=== PATIENT | male | born 1960 | race Caucasian/White ===

== ENCOUNTER 2022-01-06 10:27 | Outpatient (REF) | payer MEDICAID, SELFPAY ==
--- NOTE | ~2022-01-06 | XR_ITS ---
EXAMINATION: XR ELBOW, LEFT CLINICAL INFORMATION: Pain. COMPARISON: None TECHNIQUE: AP, lateral, and oblique views of the left elbow. FINDINGS: There is a large olecranon osteophyte. Also visualized is a small medial epicondyle osteophyte. No acute fracture, dislocation or subluxation seen. No joint effusion. No soft tissue calcification. XR/XR elbow LT min 3V IMPRESSION: Large olecranon and a small medial epicondyle osteophyte. No fracture acute fracture or joint effusion seen.
== END 2022-01-06 10:28 | disposition home or self-care (01) ==
LOC: HO.HOSX 10:27
PROVIDERS: Visit Provider Physician Assistant
DX: M25.722 Osteophyte, left elbow (principal)
CPT/HCPCS: 73080; 99202

== ENCOUNTER 2023-04-27 08:32 | Outpatient (REF) | payer MEDICAID, SELFPAY ==
[2023-04-27 10:55] LABS: Alanine Aminotransferase 45 U/L (0-40); Albumin Level 4.3 g/dL (3.5-5.0); Alkaline Phosphatase 69 U/L (39-117); Anion Gap 13 (12-20); Aspartate Amino Transferase 22 U/L (5-37); Bilirubin Total 0.3 mg/dL (0.0-1.0); Blood Urea Nitrogen 13 mg/dL (9-16); Calcium 10.1 mg/dL (8.4-10.2); Carbon Dioxide 28 mmol/L (22-29); Chloride 98 mmol/L (96-108); Cholesterol 183 mg/dL (<200); Estimated Glomerular Filt Rate > 60; Glucose Random 125 mg/dL (60-115); HDL Cholesterol 39 mg/dL (>40); LDL Cholesterol Calculated 69 mg/dL (<100); Potassium 3.5 mmol/L (3.3-5.1); Sodium 135 mmol/L (135-145); Total Protein 8.3 g/dL (6.5-8.0); Triglycerides 376 mg/dL (<150)
[2023-04-27 11:07] LABS: Prostate Specific Antigen 7.09 ng/mL (<0.05-4.0)
[2023-04-27 12:03] LABS: Estimated Average Glucose 117 mg/dL; Hemoglobin A1c % 5.7 % (<6.0)
[2023-04-27 12:17] LABS: Reflex LDLD? No
== END 2023-04-27 08:33 | disposition home or self-care (01) ==
LOC: HO.LAB 08:32
PROVIDERS: PCP Family Medicine; Visit Provider Family Medicine
DX: I10 Essential (primary) hypertension (principal); E78.5 Hyperlipidemia, unspecified; N40.0 Benign prostatic hyperplasia without lower urinary tract symptoms
CPT/HCPCS: 36415; 80053; 80061; 83036; 84153

== ENCOUNTER 2023-09-13 07:36 | Outpatient (REF) | payer MEDICAID, SELFPAY ==
--- NOTE | ~2023-09-13 | US_ITS ---
EXAMINATION: US COMPLETE ABDOMEN WITH LIVER ELASTOGRAPHY CLINICAL INFORMATION: Hepatic fibrosis. COMPARISON: CT abdomen and pelvis dated 05/12/2018; abdominal ultrasound dated 06/22/2010. TECHNIQUE: Real-time imaging of the abdominal viscera. Noninvasive ultrasound liver fibrosis assessment is performed using Wallace ElastPQ point quantification shear wave elastography (2D-SWE) with a C5-2 MHz transducer. Multiple elastography samples are obtained. FINDINGS: PANCREAS: Largely obscured by overlapping bowel gas. ABDOMINAL AORTA: The proximal and mid segments are obscured by overlapping bowel gas. The distal segment is normal in caliber. INFERIOR VENA CAVA: Visualized portions are normal. LIVER: The liver demonstrates normal size, contour and increased echogenicity. No focal lesion or intrahepatic biliary duct dilatation. The right lobe measures 16.3 cm in length. The left lobe measures 11.8 cm in length. Portal flow is towards the liver (hepatopetal). Shear wave liver elastography median stiffness is 1.97 m/s (reference: normal median stiffness is 1.3 m/s or less). IQR/median stiffness to assess sampling precision is 0.15 (reference: good quality data set is IQR/median stiffness of 0.15 or less). GALLBLADDER: There are small foci of ringdown artifact, consistent with adenomyomatosis. The gallbladder is physiologically distended without evidence of stones, sludge, polyps, wall thickening or pericholecystic fluid. COMMON BILE DUCT: Normal in caliber measuring 0.4 cm in diameter. RIGHT KIDNEY: Normal. No hydronephrosis. No renal calculi or focal parenchymal lesions. The kidney measures 11.5 cm in maximum dimension. LEFT KIDNEY: Normal. No hydronephrosis. No renal calculi or focal parenchymal lesions. The kidney measures 11.6 cm in maximum dimension. SPLEEN: Normal. The spleen measures 9.8 cm in maximum dimension. FREE FLUID: None. US/US abdomen comp w elastography IMPRESSION: 1. There is generalized increase in hepatic echotexture, consistent with fatty infiltration or hepatocellular disease. Please correlate clinically. No focal hepatic mass or intrahepatic biliary dilatation is seen. 2. Liver elastography: Measurements are suggestive of compensated advanced chronic liver disease but need further test for confirmation. 3. There is mild adenomyomatosis. 4. Technically limited ultrasound examination of the pancreas and abdominal great vessels. REFERENCE: Society of Radiologists in Ultrasound Liver Stiffness Thresholds (2020): LIVER STIFFNESS THRESHOLDS: *Liver Stiffness equal or less than 1.3 m/s: High probability of being normal. *Liver Stiffness less than 1.7 m/s: In the absence of other known clinical signs, rules out compensated advanced chronic liver disease. *Liver Stiffness 1.7-2.1 m/s: Suggestive of compensated advanced chronic liver disease but need further test for confirmation. *Liver Stiffness over 2.1 m/s: Rules in compensated advanced chronic liver disease. *Liver Stiffness over 2.4 m/s: Suggestive of clinically significant portal hypertension. QUALITY OF DATA SET: *IQR/Median value equal or less than 0.15 implies a quality data set. *IQR/Median value over 0.15 implies a poor quality data set. SIGNIFICANT CHANGE FROM PRIOR EXAM: Significant change if liver stiffness measurement is 10% or greater from prior exam. OTHER CONSIDERATIONS: The stage of liver fibrosis may be overestimated in the setting of acute hepatitis, liver inflammation, elevated liver function tests, hepatic vascular congestion, obstructive cholestasis, non-fasting state, and infiltrative diseases such as amyloidosis and lymphoma. In some patients with NAFLD, the liver stiffness thresholds for compensated advanced chronic liver disease may be lower. In causes other than viral hepatitis and NAFLD, liver stiffness thresholds are not well established.
[2023-09-13 08:38] LABS: MANUAL DIFF FLAG NO
[2023-09-13 09:13] LABS: Basophils Absolute Auto 0.1 X10*3/uL (0.0-0.2); Basophils Percent Auto 0.8 % (0-2); Eosinophils Absolute Auto 0.2 X10*3/uL (0.0-0.4); Eosinophils Percent Auto 2.6 % (0-4); Hemoglobin 16.4 g/dl (14.0-18.0); Imm Gran Abs Auto 0.02 X10*3/uL (0.00-0.03); Imm Gran Pct Auto 0.3 % (0.0-0.4); Lymphocytes Absolute Auto 2.6 X10*3/uL (1.2-4.9); Lymphocytes Percent Auto 35.3 % (20-40); Mean Corpuscular HGB Conc 33.5 g/dl (31.0-36.0); Mean Corpuscular Hemoglobin 27.4 pg (27.0-33.0); Mean Corpuscular Volume 81.8 fL (80.0-98.0); Mean Platelet Volume 9.6 fL (9.4-12.4); Monocytes Absolute Auto 0.7 X10*3/uL (0.1-1.2); Neutrophils Absolute Auto 3.9 x10*3/uL (2.0-8.3); Platelet Count 256 X10*3/uL (160-400); Red Blood Count 5.99 X10*6/uL (4.60-5.80); Red Cell Distribution Width 13.2 % (11.0-16.0); White Blood Count 7.4 X10*3/uL (4.8-10.8)
[2023-09-13 09:21] LABS: Prothrombin Time 12.5 SEC (11.1-13.3)
[2023-09-13 10:35] LABS: Alanine Aminotransferase 33 U/L (0-40); Albumin Level 4.3 g/dL (3.5-5.0); Alkaline Phosphatase 68 U/L (39-117); Aspartate Amino Transferase 19 U/L (5-37); Bilirubin Direct 0.2 mg/dL (0.0-0.5); Bilirubin Total 0.6 mg/dL (0.0-1.0); Total Protein 8.1 g/dL (6.5-8.0)
[2023-09-14 13:38] LABS: Alpha Fetoprotein 2.1 ng/mL (<6.1)
[2023-09-15 08:33] LABS: HCV Log PCR <1.18 NOT DETECTED Log IU/mL (NOT DETECTED); HepC Viral Load <15 NOT DETECTED IU/mL (NOT DETECTED)
[2023-09-30 08:12] LABS: Liver Fibrosis Score 0.29; Liver Fibrosis Stage F1
[2023-09-30 08:13] LABS: Nec Inflam Act Grade A0; Nec Inflam Act Score 0.13
[2023-09-30 08:14] LABS: FIB-Alpha-2-Macroglobulin 226; FIB-Haptoglobin 212
[2023-09-30 08:15] LABS: FIB-Apolipoprotein A1 135; FIB-GGT 27; FIB-Total Bilirubin 0.5
[2023-09-30 08:16] LABS: FIB-ALT 28
== END 2023-09-13 07:37 | disposition home or self-care (01) ==
LOC: HO.US 07:36
PROVIDERS: PCP Family Medicine; Visit Provider Internal Medicine
DX: Z86.19 Personal history of other infectious and parasitic diseases (principal); K74.00 Hepatic fibrosis, unspecified
CPT/HCPCS: 36415; 76700; 76981; 80076; 81596; 82105; 85025; 85610; 87522

== ENCOUNTER 2023-10-06 10:27 | Outpatient (REF) | payer MEDICAID, SELFPAY ==
--- NOTE | ~2023-10-06 | XR_ITS ---
EXAMINATION: XR ANKLE, LEFT CLINICAL INFORMATION: Left ankle pain. Evaluate for gout. COMPARISON: None available. TECHNIQUE: AP, lateral, and mortise views of the left ankle. FINDINGS: No acute fracture or dislocation. Minimal tibiotalar joint space narrowing with tiny marginal osteophytes. No talar osteochondral lesion. No periarticular erosion. Along the anterior aspect of the tibial plafond there is faint soft tissue calcification measuring up to 0.9 cm. Minimal circumferential subcutaneous edema. XR/XR ankle LT min 3V IMPRESSION: 1. Minimal tibiotalar osteoarthritis. 2. Faint soft tissue calcification along the anterior aspect of the tibial plafond measuring up to 0.9 cm. No periarticular erosion. Very early gout arthropathy cannot be excluded. 3. Minimal circumferential subcutaneous edema.
[2023-10-06 10:40] LABS: MANUAL DIFF FLAG NO
[2023-10-06 10:57] LABS: Basophils Absolute Auto 0.1 X10*3/uL (0.0-0.2); Basophils Percent Auto 0.4 % (0-2); Hematocrit 45.5 % (42.0-52.0); Hemoglobin 15.6 g/dl (14.0-18.0); Imm Gran Abs Auto 0.08 X10*3/uL (0.00-0.03); Imm Gran Pct Auto 0.6 % (0.0-0.4); Lymphocytes Absolute Auto 3.5 X10*3/uL (1.2-4.9); Mean Corpuscular HGB Conc 34.3 g/dl (31.0-36.0); Mean Corpuscular Hemoglobin 27.4 pg (27.0-33.0); Mean Corpuscular Volume 79.8 fL (80.0-98.0); Mean Platelet Volume 9.3 fL (9.4-12.4); Monocytes Absolute Auto 1.3 X10*3/uL (0.1-1.2); Monocytes Percent Auto 9.3 % (2-11); Neutrophils Percent Auto 64.7 % (45-73); Platelet Count 307 X10*3/uL (160-400); Red Cell Distribution Width 13.3 % (11.0-16.0); White Blood Count 13.9 X10*3/uL (4.8-10.8)
[2023-10-06 11:32] LABS: Anion Gap 15 (12-20); Blood Urea Nitrogen 24 mg/dL (9-16); C Reactive Protein 0.14 mg/dL (< or = 0.50); Calcium 10.4 mg/dL (8.4-10.2); Carbon Dioxide 28 mmol/L (22-29); Chloride 99 mmol/L (96-108); Estimated Glomerular Filt Rate 56; Glucose Random 76 mg/dL (60-115); Potassium 3.5 mmol/L (3.3-5.1); Sodium 138 mmol/L (135-145); Uric Acid 8.2 mg/dL (3.4-7.0)
[2023-10-06 11:39] LABS: Erythrocyte Sedimentation Rate 7 MM/HR (0-15)
== END 2023-10-06 10:28 | disposition home or self-care (01) ==
LOC: HO.XRAY 10:27
PROVIDERS: PCP Family Medicine; Visit Provider Family Medicine
DX: M25.572 Pain in left ankle and joints of left foot (principal); I10 Essential (primary) hypertension
CPT/HCPCS: 36415; 73610; 80048; 84550; 85025; 85652; 86140

== ENCOUNTER 2023-10-26 07:58 | Outpatient (REF) | payer MEDICAID, SELFPAY ==
--- NOTE | ~2023-10-26 | US_ITS ---
EXAMINATION: NONINVASIVE ASSESSMENT OF THE ARTERIES OF BOTH LOWER EXTREMITIES INCLUDING PVR EXAM AND BILATERAL LOWER EXTREMITY DUPLEX CLINICAL INFORMATION: Claudication COMPARISON: None TECHNIQUE: Ankle pulse volume recordings, ankle pressure measurements and ankle brachial indices were obtained of the lower extremity arterial system bilaterally in addition to duplex Doppler techniques with wave form analysis and measurement of velocities in the common femoral, profunda femoral, superficial femoral, popliteal, tibial and peroneal arteries. The study was performed only at rest. FINDINGS: RIGHT LEG 1. Right Ankle-Brachial Index: 1.15 (higher of the DP/PT) >0.97-1.25 = normal - no significant arterial disease 0.75-0.96 = mild peripheral arterial disease 0.5-0.74 = moderate peripheral arterial disease <0.50 = severe peripheral arterial disease <0.30 = critical arterial disease 2. Segmental Pressures (mmHg): Brachial: 125 Ankle: PT 149, DP 153 3. PVR Waveforms: Ankle: Normal 4. Direct Duplex: Common femoral artery: 45.7 cm/s, Multiphasic Profunda femoris artery: 85.1 cm/s, Multiphasic Superficial femoral artery (proximal): 102.1 cm/s, Multiphasic Superficial femoral artery (mid): 109.1 cm/s, Multiphasic Superficial femoral artery (distal): 74.4 cm/s, Multiphasic Proximal Popliteal artery: 67.1 cm/s, Multiphasic Distal popliteal artery: 57.1 cm/s, Multiphasic Mid posterior tibial artery: 64.3 cm/s, Multiphasic Peroneal artery: 67.8 cm/s, Multiphasic Anterior tibial artery: 60 cm/s, multiphasic LEFT LE. Left Ankle-Brachial Index: 1.08 (higher of the DP/PT) >0.97-1.25 = normal - no significant arterial disease 0.75-0.96 = mild peripheral arterial disease 0.5-0.74 = moderate peripheral arterial disease <0.50 = severe peripheral arterial disease <0.30 = critical arterial disease 2. Segmental Pressures: Brachial: 133 Ankle: PT 144, DP 140 3. PVR Waveforms: Ankle: Normal 4. Direct Duplex: Common femoral artery: 107.7 cm/s, Multiphasic Profunda femoris artery: 92.2 cm/s, Multiphasic Superficial femoral artery (proximal): 103.6 cm/s, Multiphasic Superficial femoral artery (mid): 99.6 cm/s, Multiphasic Superficial femoral artery (distal): 79.2 cm/s, Multiphasic Proximal Popliteal artery: 63.5 cm/s, Multiphasic Distal popliteal artery: 58.2 cm/s, Multiphasic Mid posterior tibial artery: 53.9 cm/s, Multiphasic Peroneal artery: 78.8 cm/s, Multiphasic Anterior tibial artery: 70.9 cm/s, multiphasic US/US arterial duplex BI w/ LIUS F IMPRESSION: LUIS F on the right is 1.15 and LUIS F on the left is 1.08. PVR waveforms are unremarkable bilaterally. There is no sonographic evidence of hemodynamically significant arterial disease.
== END 2023-10-26 07:59 | disposition home or self-care (01) ==
LOC: HO.US 07:58
PROVIDERS: PCP Family Medicine; Visit Provider Family Medicine
DX: I73.9 Peripheral vascular disease, unspecified (principal)
CPT/HCPCS: 93922; 93925

== ENCOUNTER 2023-11-04 11:14 | Outpatient (REF) | payer MEDICAID, SELFPAY ==
[2023-11-04 13:24] LABS: Anion Gap 11 (12-20); Blood Urea Nitrogen 13 mg/dL (9-16); Carbon Dioxide 27 mmol/L (22-29); Chloride 103 mmol/L (96-108); Estimated Glomerular Filt Rate > 60; Glucose Random 90 mg/dL (60-115); Potassium 4.2 mmol/L (3.3-5.1); Sodium 137 mmol/L (135-145)
== END 2023-11-04 11:15 | disposition home or self-care (01) ==
LOC: HO.HHCL 11:14
PROVIDERS: Visit Provider Internal Medicine
DX: E87.1 Hypo-osmolality and hyponatremia (principal)
CPT/HCPCS: 36415; 80048

== ENCOUNTER 2024-01-20 10:38 | Outpatient (REF) | payer MEDICAID, SELFPAY ==
[2024-01-20 11:22] LABS: MANUAL DIFF FLAG NO
[2024-01-20 11:26] LABS: Basophils Absolute Auto 0.1 X10*3/uL (0.0-0.2); Basophils Percent Auto 1.1 % (0-2); Eosinophils Absolute Auto 0.3 X10*3/uL (0.0-0.4); Eosinophils Percent Auto 4.2 % (0-4); Hematocrit 48.7 % (42.0-52.0); Hemoglobin 16.2 g/dl (14.0-18.0); Imm Gran Abs Auto 0.02 X10*3/uL (0.00-0.03); Imm Gran Pct Auto 0.3 % (0.0-0.4); Lymphocytes Absolute Auto 2.6 X10*3/uL (1.2-4.9); Lymphocytes Percent Auto 36.8 % (20-40); Mean Corpuscular HGB Conc 33.3 g/dl (31.0-36.0); Mean Corpuscular Hemoglobin 27.4 pg (27.0-33.0); Mean Corpuscular Volume 82.4 fL (80.0-98.0); Mean Platelet Volume 9.6 fL (9.4-12.4); Monocytes Absolute Auto 0.9 X10*3/uL (0.1-1.2); Monocytes Percent Auto 12.3 % (2-11); Neutrophils Absolute Auto 3.3 x10*3/uL (2.0-8.3); Neutrophils Percent Auto 45.3 % (45-73); Platelet Count 262 X10*3/uL (160-400); Red Blood Count 5.91 X10*6/uL (4.60-5.80); Red Cell Distribution Width 13.1 % (11.0-16.0); White Blood Count 7.2 X10*3/uL (4.8-10.8)
[2024-01-20 12:02] LABS: Alanine Aminotransferase 35 U/L (0-40); Albumin Level 4.3 g/dL (3.5-5.0); Alkaline Phosphatase 86 U/L (39-117); Anion Gap 9 (12-20); Aspartate Amino Transferase 22 U/L (5-37); Bilirubin Total 0.3 mg/dL (0.0-1.0); Blood Urea Nitrogen 10 mg/dL (9-16); Calcium 9.8 mg/dL (8.4-10.2); Carbon Dioxide 27 mmol/L (22-29); Chloride 104 mmol/L (96-108); Cholesterol 166 mg/dL (<200); Estimated Glomerular Filt Rate > 60; Glucose Random 127 mg/dL (60-115); HDL Cholesterol 37 mg/dL (>40); LDL Cholesterol Calculated 66 mg/dL (<100); Potassium 3.6 mmol/L (3.3-5.1); Sodium 136 mmol/L (135-145); Total Protein 7.6 g/dL (6.5-8.0); Triglycerides 316 mg/dL (<150); Uric Acid 4.5 mg/dL (3.4-7.0)
[2024-01-20 12:08] LABS: Reflex LDLD? No
[2024-01-20 12:17] LABS: TSH reflex Free T4 1.04 uIU/mL (0.32-4.0)
[2024-01-20 12:35] LABS: Creatinine Urine 81.56 mg/dL; Microalbum/Creatinine Ratio Ur 12.2 ug/mg cr (<30)
== END 2024-01-20 10:39 | disposition home or self-care (01) ==
LOC: HO.HHCL 10:38
PROVIDERS: Visit Provider Family Medicine
DX: R42 Dizziness and giddiness (principal); E87.1 Hypo-osmolality and hyponatremia; M10.9 Gout, unspecified; E78.5 Hyperlipidemia, unspecified; I10 Essential (primary) hypertension
CPT/HCPCS: 36415; 80053; 80061; 82043; 82570; 84443; 84550; 85025

== ENCOUNTER 2024-03-20 08:15 | Day surgery (SDC) | payer MEDICAID, SELFPAY ==
[2023-12-03 14:19] VITALS: BMI 29.4
--- NOTE | 2023-12-07 09:25 | HO.ANESPROP2 ---
HPI - Anesthesia Eval Consult details Narrative: 63yo M for Colonoscopy PMFSH Active Problems Active Problems: All Active Problems Olecranon bone spur (Acute) Past Medical History Medical History (Updated 12/03/23 @ 14:24 by Candis Teran RN) Depression Hiatal hernia GERD (gastroesophageal reflux disease) Elevated cholesterol HTN (hypertension) Hepatitis Upper GI bleed Surgical History Surgical History (Updated 12/03/23 @ 14:24 by Candis Teran RN) Hx of transurethral resection of prostate History of esophagogastroduodenoscopy (EGD) H/O colonoscopy Social History Social History (Updated 01/06/22 @ 10:17 by Thais Nelson CMA) Current occupational status: employed Meds Allergies Allergy/AdvReac Type Severity Reaction Status Date / Time No Known Allergies Allergy Unverified 12/21/19 16:12 [No Known Allergies*] Home Medications ?Medication ?Instructions ?Recorded ?Confirmed ?Last Taken ?Type aspirin 81 mg tablet,delayed 81 mg PO DAILY 01/06/22 12/03/23 Unknown History release atorvastatin 10 mg tablet 10 mg PO DAILY 01/06/22 12/03/23 Unknown History cetirizine 10 mg tablet 10 mg PO DAILY 01/06/22 12/03/23 Unknown History chlorthalidone 25 mg tablet 25 mg PO DAILY 01/06/22 12/03/23 Unknown History lisinopril 40 mg tablet 40 mg PO DAILY 01/06/22 12/03/23 Unknown History omeprazole 20 mg capsule,delayed 20 mg PO DAILY 01/06/22 12/03/23 Unknown History release tamsulosin 0.4 mg capsule 0.4 mg PO DAILY 01/06/22 12/03/23 Unknown History trazodone 50 mg tablet 50 mg PO BEDTIME 01/06/22 12/03/23 Unknown History verapamil 300 mg capsule 24hr 300 mg PO BEDTIME 01/06/22 12/03/[address],ext.release fluticasone propionate 50 1 spray intranasal DAILY 12/03/23 12/03/23 Unknown History mcg/actuation nasal spray,suspension Exam Height,Weight and Vital Signs: Height 6 ft 1 in Weight 101.151 kg Assessment and Plan Assessment Anesthesia Assessment: Chart Reviewed
[2024-03-16 16:36] VITALS: BMI 29.0
--- NOTE | 2024-03-17 09:27 | HO.ANESPROP2 ---
Documented by User: Hali Galicia NP 03/17/24 09:27 HPI - Anesthesia Eval Consult details Narrative: 63yo M for Colonoscopy PMFSH Active Problems Active Problems: All Active Problems Olecranon bone spur (Acute) Past Medical History Medical History Depression Hiatal hernia GERD (gastroesophageal reflux disease) Elevated cholesterol HTN (hypertension) Hepatitis Upper GI bleed Surgical History Surgical History Hx of transurethral resection of prostate History of esophagogastroduodenoscopy (EGD) H/O colonoscopy Social History Social History Household Members: Family Housing: House Are you a primary intensive care unit nurse to a significant other at home: No Do you presently have visiting nurse or other home services: No Patient Tobacco Use Status: Never used Tobacco e-Cigarette/Vaping Use: Never Used Use of substances other than those prescribed or required for medical reasons: No Have you been hit, kicked, punched, or otherwise hurt by someone within the past year? If so, by whom?: No Are you DNR?: No Advance Directives: No Advance Directives Information Provided: Yes Advance Directives on File: No Recently lost weight without trying: No Nutrition Risks: No Nutritional Risk Poor oral hygiene: No Current occupational status: employed Meds Allergies Allergy/AdvReac Type Severity Reaction Status Date / Time No Known Allergies Allergy Verified 03/20/24 08:35 [No Known Allergies*] Home Medications ?Medication ?Instructions ?Recorded ?Confirmed ?Last Taken ?Type atorvastatin 10 mg tablet 10 mg PO DAILY 01/06/22 03/16/24 Unknown History lisinopril 40 mg tablet 40 mg PO DAILY 01/06/22 03/16/24 03/20/24 History omeprazole 20 mg capsule,delayed 20 mg PO DAILY 01/06/22 03/16/24 Unknown History release tamsulosin 0.4 mg capsule 0.4 mg PO DAILY 01/06/22 03/16/24 Unknown History trazodone 50 mg tablet 50 mg PO BEDTIME 01/06/22 03/16/24 Unknown History verapamil 300 mg capsule 24hr 300 mg PO DAILY 01/06/22 03/16/[address],ext.release allopurinol 100 mg tablet 100 mg PO DAILY 03/16/24 03/16/24 Unknown History amlodipine 10 mg tablet 10 mg PO DAILY 03/16/24 03/16/24 03/20/24 History Exam Height,Weight and Vital Signs: Height 6 ft 1 in Weight 99.79 kg Assessment and Plan Assessment Anesthesia Assessment: Chart Reviewed Documented by User: Leeanna Pepper MD 03/20/24 08:50 PMFSH Past Medical History Medical History Depression Hiatal hernia GERD (gastroesophageal reflux disease) Elevated cholesterol HTN (hypertension) Hepatitis Upper GI bleed Family History Family history of problems with anesthesia: No Surgical History Surgical History Hx of transurethral resection of prostate History of esophagogastroduodenoscopy (EGD) H/O colonoscopy History of Problems with Anesthesia: No Social History Social History Household Members: Family Housing: House Are you a primary intensive care unit nurse to a significant other at home: No Do you presently have visiting nurse or other home services: No Patient Tobacco Use Status: Never used Tobacco e-Cigarette/Vaping Use: Never Used Use of substances other than those prescribed or required for medical reasons: No Have you been hit, kicked, punched, or otherwise hurt by someone within the past year? If so, by whom?: No Are you DNR?: No Advance Directives: No Advance Directives Information Provided: Yes Advance Directives on File: No Recently lost weight without trying: No Nutrition Risks: No Nutritional Risk Poor oral hygiene: No Current occupational status: employed Meds Allergies Allergy/AdvReac Type Severity Reaction Status Date / Time No Known Allergies Allergy Verified 03/20/24 08:35 [No Known Allergies*] Home Medications ?Medication ?Instructions ?Recorded ?Confirmed ?Last Taken ?Type atorvastatin 10 mg tablet 10 mg PO DAILY 01/06/22 03/16/24 Unknown History lisinopril 40 mg tablet 40 mg PO DAILY 01/06/22 03/16/24 03/20/24 History omeprazole 20 mg capsule,delayed 20 mg PO DAILY 01/06/22 03/16/24 Unknown History release tamsulosin 0.4 mg capsule 0.4 mg PO DAILY 01/06/22 03/16/24 Unknown History trazodone 50 mg tablet 50 mg PO BEDTIME 01/06/22 03/16/24 Unknown History verapamil 300 mg capsule 24hr 300 mg PO DAILY 01/06/22 03/16/[address],ext.release allopurinol 100 mg tablet 100 mg PO DAILY 03/16/24 03/16/24 Unknown History amlodipine 10 mg tablet 10 mg PO DAILY 03/16/24 03/16/24 03/20/24 History Exam Airway Mallampati Class: II TM Dist: >3cm Neck ROM: Full Heart: rrr Lungs: cta Assessment and Plan Assessment Anesthesia Assessment: Anesthesia Plan Discussed Final Anesthetic Review Family History of Problems with Anesthesia: No History of Problems with Anesthesia: No NPO: Yes ASA Class: III Final Preanesthetic Review: No Changes in Pt Med Stat, Meds/Allgs Chart Reviewed, Consent Obtained/Reviewed and Anes Risks/Benef Reviewed Patient Risk: Intermediate Procedure Risk: Low Anesthetic Plan Anesthetic Plan: MAC: Disposition: Standard PACU
[2024-03-20] MEDS: Lactated Ringers 1,000 ML 100 ML IVCONT (08:39)
[2024-03-20 08:45] VITALS: BP 146/87; PULSE 93; RESP 18; TEMP 36.7; O2SAT 97
[2024-03-20 08:46] VITALS: BMI 28.4
[2024-03-20 10:22] VITALS: BP 93/55; PULSE 80; RESP 16; TEMP 36.2; O2SAT 97
--- NOTE | 2024-03-20 10:25 | PM.OP ---
Brief Operative Note Date of Service: 03/20/24 Pre-op diagnosis: Screening Post-op diagnosis: other (Diverticulosis) Procedure: Colonoscopy to the cecum Surgeon: Kristian Chi MD Anesthesia: MAC Was an Skip Hoist Engineer used for this Procedure?: No Estimated blood loss (mL): 0 Pathology: none sent Condition: stable Disposition: PACU
[2024-03-20 10:37] VITALS: BP 128/75; PULSE 73; RESP 18; TEMP 36.2; O2SAT 96
--- NOTE | 2024-03-20 10:37 | OP_ITS ---
DATE OF SERVICE: 03/20/2024 SURGEON: Kristian Chi MD INDICATIONS: The patient presents for evaluation of colorectal cancer screening. Full consent has been obtained from him for this, including risks of bleeding and perforation. PREOPERATIVE DIAGNOSIS: Colorectal cancer screening. POSTOPERATIVE DIAGNOSIS: PROCEDURE PERFORMED: Colonoscopy to the cecum. ESTIMATED BLOOD LOSS: COMPLICATIONS: ANESTHESIA: Monitored anesthesia care. ASSISTANTS: SPECIMENS: POSTOPERATIVE DIAGNOSES: Colorectal cancer screening, diverticulosis, and internal hemorrhoids. DESCRIPTION OF PROCEDURE: The patient was placed in the left lateral decubitus position. The digital rectal exam revealed no abnormalities. The Olympus video pediatric colonoscope was then entered into the rectum and advanced easily to the cecum. Once in the cecum, I did identify normal-appearing cecal pouch with appendiceal orifice and a normal-appearing ileocecal valve. The entire cecum and ileocecal valve appeared normal. There was transillumination of light deep in the right lower quadrant. The scope was slowly withdrawn assessing all mucosal surfaces carefully. Preparation was excellent. I did not visualize any sign of polyps, colitis, nor angiodysplasias. There was a mild amount of sigmoid diverticulosis. In the rectum, scope was retroflexed, visualizing internal hemorrhoids, but no other pathology. The rectal mucosa appeared normal. The scope was straightened and withdrawn from the patient. He tolerated the procedure well and was returned to the recovery area in stable condition. IMPRESSION: 1. Diverticulosis. 2. Internal hemorrhoids. PLAN: I would recommend a repeat colonoscopy in 10 years for further screening. He was advised to see me in 1 year for followup of his underlying history of previous hepatitis C. Abdominal ultrasound and laboratories earlier this year were unremarkable. Kristian Chi MD RMW/JOSHL / [id number]
== END 2024-03-20 11:15 | disposition home or self-care (01) ==
PROVIDERS: PCP Family Medicine; Visit Provider Internal Medicine
PROC: 0DJD8ZZ Inspection of Lower Intestinal Tract, Via Natural or Artificial Opening Endoscopic (ICD-10-PCS; CPT 45378; principal; 2024-03-20 09:30)
DX: Z12.11 Encounter for screening for malignant neoplasm of colon (principal); K57.30 Diverticulosis of large intestine without perforation or abscess without bleeding; K64.8 Other hemorrhoids; I10 Essential (primary) hypertension; E78.00 Pure hypercholesterolemia, unspecified; K21.9 Gastro-esophageal reflux disease without esophagitis; K74.00 Hepatic fibrosis, unspecified; Z86.19 Personal history of other infectious and parasitic diseases; Z79.899 Other long term (current) drug therapy; Z79.02 Long term (current) use of antithrombotics/antiplatelets; Z79.82 Long term (current) use of aspirin
CPT/HCPCS: 45378; J2003; J2704

== ENCOUNTER 2024-08-30 08:45 | Outpatient (REF) | payer MEDICAID, SELFPAY ==
[2024-08-30 09:04] LABS: MANUAL DIFF FLAG NO
--- OUTSIDE RECORDS SUMMARY | 2024-08-30 09:05 | XMS_ITS | Encounter Summary ---
Author Organization [employer] Address [address] [facility] 7t [place] [address] Care Team Providers Care Bundle Breaker Name Role Phone Aisha Walton MD Primary Care Provider [phone] Reason for Visit * Reason Comments Med Refill Encounter Details Date Type Department Care Team ([facility] st Contact Info) Description 01/02/2024 Refill [facility] MEDICINE [address] [place], [place] [phone] Aisha Walton MD [address] [place], [place] [phone] Social History Tobacco Use Types Packs/Day Years Used Date Smoking Tobacco: Never Alcohol Use Standard Drinks/Week Comments Never 0 (1 standard drink = 0.6 oz pur e alcohol) Depression Answer Date Recorded Patient Health Questionnaire-9 Score 13 10/08/2023 Patient Health Questionnaire-9 Score 13 10/08/2023 Last PHQ-9: Questionnaire Data Not on file 0 10/08/2023 Housing Stability Answer Date Recorded What is your housing situation today? I have melissa singh 04/15/[address] you li ve. Do you have problems with any of the following? None of the above 04/15/2023 Food Insecurity Answer Date Recorded Within the past 12 months, y ou worried that your food would run out before you got money to buy more: Never True 04/15/2023 Within the past 12 months,th e food you bought just didn't last and you didn't have enough money to get more: Never True 02/2024 Transportation Answer Date Recorded In the past 12 months, has l ack of transportation kept you from medical appts, meetings, work or from getting things needed for daily living? No 04/15/2023 Utilities Answer Date Recorded In the past 12 months, has t he electric, gas, oil or water company threatened to shut off services in your home? No 04/15/2023 Depression Answer Date Recorded Patient Health Questionnaire-2 Score 4 10/08/2023 Internet Access Answer Date Recorded Internet Access Q1 Yes 12/06/2023 Internet Access Q2 Not on file 12/06/2023 Sex and Gender Information Value Date Recorded Sex Assigned at Male 02/02/2022 10:15 AM EDT Legal Sex Male 10:15 AM EDT Gender Identity Choose not to disclose 10:15 AM EDT Sexual Orientation Choose not to disclose 2021 10:15 AM EDT documented as of this encounter Plan of Treatment Upcoming Encounters Date Type Department Care Team (Late st Contact Info) Description 11/02/2024 10:30 AM EDT Office Visit [facility] OPTOMETRY [address] [place] [address] Karol Tolbert, OD [address] [place] [address] documented as of this encounter Visit Diagnoses Not on filedocumented in this encounter Additional Health Concerns Assessment Noted Time PHQ-9 Depression Total Score: 13 024 8:45 AM EDT documented as of this encounter Care Teams Bundle Breaker Relationship Specialty Start Date End Date Aisha Walton MD [address] [place] [address] PCP - General Family Medicine 07/23/15 documented as of this encounter
[2024-08-30 09:39] LABS: Basophils Absolute Auto 0.1 X10*3/uL (0.0-0.2); Eosinophils Absolute Auto 0.5 X10*3/uL (0.0-0.4); Eosinophils Percent Auto 6.5 % (0-4); Hematocrit 48.5 % (42.0-52.0); Hemoglobin 15.9 g/dl (14.0-18.0); Imm Gran Abs Auto 0.02 X10*3/uL (0.00-0.03); Imm Gran Pct Auto 0.3 % (0.0-0.4); Lymphocytes Absolute Auto 2.2 X10*3/uL (1.2-4.9); Lymphocytes Percent Auto 31.3 % (20-40); Mean Corpuscular HGB Conc 32.8 g/dl (31.0-36.0); Mean Corpuscular Hemoglobin 26.5 pg (27.0-33.0); Mean Corpuscular Volume 80.7 fL (80.0-98.0); Mean Platelet Volume 9.5 fL (9.4-12.4); Monocytes Absolute Auto 0.8 X10*3/uL (0.1-1.2); Monocytes Percent Auto 10.8 % (2-11); Neutrophils Absolute Auto 3.6 x10*3/uL (2.0-8.3); Neutrophils Percent Auto 50.1 % (45-73); Platelet Count 229 X10*3/uL (160-400); Red Blood Count 6.01 X10*6/uL (4.60-5.80); Red Cell Distribution Width 14.3 % (11.0-16.0); White Blood Count 7.1 X10*3/uL (4.8-10.8)
[2024-08-30 09:46] LABS: Estimated Average Glucose 123 mg/dL; Hemoglobin A1C 169.3228 umol/L; Hemoglobin A1c % 5.9 % (<6.0); Total Hemoglobin (HGBA1C) 4155.3531 umol/L
[2024-08-30 10:32] LABS: Erythrocyte Sedimentation Rate 3 MM/HR (0-15)
[2024-08-30 10:34] LABS: Alanine Aminotransferase 44 U/L (0-40); Albumin Level 4.3 g/dL (3.5-5.0); Alkaline Phosphatase 89 U/L (39-117); Anion Gap 11 (12-20); Aspartate Amino Transferase 26 U/L (5-37); Bilirubin Total 0.5 mg/dL (0.0-1.0); Blood Urea Nitrogen 11 mg/dL (9-16); C Reactive Protein 0.13 mg/dL (< or = 0.50); Calcium 9.5 mg/dL (8.4-10.2); Carbon Dioxide 25 mmol/L (22-29); Chloride 106 mmol/L (96-108); Cholesterol 166 mg/dL (<200); Estimated Glomerular Filt Rate > 60; Glucose Random 92 mg/dL (60-115); HDL Cholesterol 35 mg/dL (>40); LDL Cholesterol Calculated 85 mg/dL (<100); Potassium 4.1 mmol/L (3.3-5.1); Sodium 138 mmol/L (135-145); Total Protein 7.8 g/dL (6.5-8.0); Triglycerides 232 mg/dL (<150)
[2024-08-30 10:38] LABS: Reflex LDLD? No
[2024-08-30 10:40] LABS: ~HepC Num1 12.76 S/CO (0.00-0.79); ~Hepatitis C Antibody Reactive (Nonreactive)
[2024-08-30 17:27] LABS: Rheumatoid Factor < 13.0 IU/mL (<15.0)
[2024-08-30 17:44] LABS: Uric Acid 4.9 mg/dL (3.4-7.0)
[2024-09-01 12:13] LABS: Cyclic Citrullinated Peptide <16 UNITS
[2024-09-02 13:59] LABS: HCV Log PCR <1.18 NOT DETECTED Log IU/mL (NOT DETECTED); HepC Viral Load <15 NOT DETECTED IU/mL (NOT DETECTED)
[2024-09-04 12:59] LABS: Anti Nuclear Antibody Screen POSITIVE (NEGATIVE)
[2024-09-04 13:03] LABS: Anti Nuclear Antibody Pattern Nuclear, Speckled; Anti Nuclear Antibody Titer 1:40 titer
== END 2024-08-30 08:46 | disposition home or self-care (01) ==
LOC: HO.LAB 08:45
PROVIDERS: PCP Family Medicine; Visit Provider Family Medicine
DX: M25.50 Pain in unspecified joint (principal); I10 Essential (primary) hypertension; Z13.1 Encounter for screening for diabetes mellitus; M10.9 Gout, unspecified; K76.0 Fatty (change of) liver, not elsewhere classified
CPT/HCPCS: 36415; 80053; 80061; 83036; 84550; 85025; 85652; 86038; 86039; 86140; 86200; 86431; 86803; 87522

== ENCOUNTER 2025-02-23 15:24 | Outpatient (REF) | payer MEDICAID, SELFPAY ==
--- OUTSIDE RECORDS SUMMARY | 2024-03-20 04:30 | XMS_ITS ---
Author Organization [facility] Address [address] [place] [id number] Care Team Providers Care Prosecuting Attorney Name Role Phone Isabelle PALMA, Aisha Primary Care Provider Kristian Pereira [phone] REASON FOR VISIT screening Problems Problem Type SNOMED Code ICD Code Onset Dates Problem Status W/U Status Risk Notes Problem Diverticular disease of colon (435445421) Diverticulosis of large intestine without perforation or abscess without bleeding (K57.30) Active confirmed Encounters Encounter Location Date Provider Diagnosis [facility] Outpatient [address] [place] [phone] 03/20/2024 Kristian Chi Colon cancer scree daquan Z12.11 ; Diverticulosis of large intestine without perforation or abscess without bleeding K57.30 and Other hemorrhoids K64.8 Assessments Encounter Date Diagnosis (ICD Code) Assessment Notes Treatment Notes Treatment Clinical Notes Section Notes 03/20/2024 Colon cancer screening (ICD-10 - Z12.11) 03/20/2024 Diverticulosis of large intestine without perforation or abscess without bleeding (ICD-10 - K57.30) 03/20/2024 Other hemorrhoids (ICD-10 - K64.8) Plan Of Treatment No Information Progress Notes * MARK LANDRYBAMBIOB:1960 (64 yo M)Acc No.[id number]:03/20/2024 COLON WITH MAC Patient: TAL ACOSTA Provider: Gypsy Chi MD :1960 A ge:63 Y S ex:Male Date:03/20/2024 Address:[address] [place], [place] [id number] Pcp:Aisha Walton MD Subjective: * Chief Complaints: * S creening Assessment: * Assessment: 1. C olon cancer screening - Z12.11 (Primary) 2 . D iverticulosis of large intestine without perforation or abscess without bleeding - K57.30 3 . O ther hemorrhoids - K64.8 Plan: * Procedure Codes: 4 5378 DIAGNOSTIC COLONOSCOPY Billing Information: * Procedure Codes: 04895 DIAGNOSTIC COLONOSCOPY. * The named appointment provid er may or may not be the originator of this progress note, and it is not deemed complete until electronically signed by the appointment provider. Sign off status: Pending * Provider: Gypsy Chi MD Date: 1 05/21/2023 Generated for Greg pineda/Se/Dannieitting on: 04/25/2024 03:29 PM EST
--- NOTE | 2025-02-23 15:28 | EMG_ITS ---
Chief complaint: Bilateral feet pain, but also has back pain Reason for referral: Evaluate for neuropathy Referred by: Dr. Walton Procedure done: Bilateral lower extremity NCS/EMG Precautions and/or limitations: None The limb temperature was monitored continuously and remained between 32-36 degrees C during the performance of the NCS. Nerve Conduction Studies Anti Sensory Summary Table ?Stim Site NR Onset (ms) Norm Onset (ms) Peak (ms) Norm Peak (ms) O-P Amp (?V) Norm O-P Amp Site1 Site2 Delta-0 (ms) Dist (cm) Al (m/s) Norm Al (m/s) Left Sural Anti Sensory (Lat Mall) Calf ? 3.0 3.6 <4.0 16.4 >5.0 Calf Lat Mall 3.0 14.0 47 Right Sural Anti Sensory (Lat Mall) Calf ? 2.7 3.4 <4.0 12.3 >5.0 Calf Lat Mall 2.7 14.0 52 Motor Summary Table ?Stim Site NR Onset (ms) Norm Onset (ms) O-P Amp (mV) Norm O-P Amp iAmp (mV) Amp (1st) (%) Site1 Site2 Delta-0 (ms) Dist (cm) Al (m/s) Norm Al (m/s) Right Peroneal Motor (Ext Dig Brev) Ankle ? 3.8 <4.0 3.0 >2.5 3.4 100.0 Ankle Ext Dig Brev 3.8 0.0 B Fib ? 11.9 2.4 2.8 80.0 B Fib Ankle 8.1 38.0 47 >40 Poplt ? 12.7 2.5 2.8 83.3 Poplt B Fib 0.8 5.0 63 >40 Left Tibial Motor (Abd Scherer Brev) Ankle ? 3.2 <5 3.9 >2.5 5.5 100.0 Ankle Abd Scherer Brev 3.2 0.0 Knee ? 13.6 3.9 4.6 100.0 Knee Ankle 10.4 49.5 48 >40 Right Tibial Motor (Abd Scherer Brev) Ankle ? 3.5 <5 4.6 >2.5 6.2 100.0 Ankle Abd Scherer Brev 3.5 0.0 Knee ? 13.8 2.5 3.7 54.3 Knee Ankle 10.3 46.0 45 >40 EMG ?Side Muscle Nerve Root Ins Act Fibs Psw Amp Dur Poly Recrt Int Pat Comment Right AbdHallucis MedPlantar S1-2 Nml Nml Nml Nml Nml 0 Nml Complete Right AntTibialis Dp Br Peron L4-5 Nml Nml Nml Nml Nml 0 Nml Complete Right PostTibialis Tibial L5, S1 Nml Nml Nml Nml Nml 0 Nml Complete Right MedGastroc Tibial S1-2 Incr 1+ 1+ Nml Nml 0 Nml Complete Right VastusMed Femoral L2-4 Nml Nml Nml Nml Nml 0 Nml Complete Left AbdHallucis MedPlantar S1-2 Nml Nml Nml Nml Nml 0 Nml Complete Left AntTibialis Dp Br Peron L4-5 Incr 1+ 1+ Nml Nml 0 Nml Complete Left PostTibialis Tibial L5, S1 Nml Nml Nml Nml Nml 0 Nml Complete Left MedGastroc Tibial S1-2 Nml Nml Nml Nml Nml 0 Nml Complete Left VastusMed Femoral L2-4 Nml Nml Nml Nml Nml 0 Nml Complete Paraspinal EMG ?Side Muscle Nerve Root Ins Act Fibs Psw Comment Right Lumbar Upper Rami Nml Nml Nml Right Lumbar Mid Rami Nml Nml Nml Right Lumbar Lower Rami Incr 1+ 1+ Left Lumbar Upper Rami Nml Nml Nml Left Lumbar Mid Rami Nml Nml Nml Left Lumbar Lower Rami Incr 1+ 1+ FINDINGS: All motor and sensory nerves tested showed normal latencies, amplitudes and conduction velocities. Concentric needle EMG was performed in selected muscles of the bilateral lower extremity and lumbar paraspinals. Study revealed signs of electric abnormalities as shown in the table above. Right medial gastrocnemius and left tibialis anterior showed increased insertional activity, PSWs and fibrillations. Bilateral lower lumbar paraspinals showed increased insertional activity, PSWs and fibrillations. IMPRESSION: 1. This is an abnormal study. 2. There is electrodiagnostic evidence for bilateral lumbar radiculopathy, affecting L5/S1 nerve roots. 3. There is no electrodiagnostic evidence for peroneal neuropathy, tibial neuropathy, lumbosacral plexopathy, or peripheral neuropathy. CLINICAL COMMENT: Further clinical correlation recommended. Thank you for your kind referral. Jolynn Browne MD, MAI Board Certified, [place] [employer] and Rehabilitation (ABPMR) Board Certified, [place] Board of Electrodiagnostic Medicine (ABEM) CODIN [id number] x 2 extremities MTDD
--- OUTSIDE RECORDS SUMMARY | 2025-02-23 15:31 | XMS_ITS | Encounter Summary ---
Author Organization [employer] Address [address] [facility] 7t [place] [address] Care Team Providers Care Pulp Grinder Name Role Phone Aisha Walton MD Primary Care Provider [phone] Reason for Visit * Reason Onset Date Comments Hospital Follow-up 10/22/2023 Encounter Details Date Type Department Care Team (Late st Contact Info) Description 10/22/2023 Telephone [facility] MEDICINE [address] [place], [place] [phone] Aisha Walton MD [address] [place], [place] [phone] Hospital Follow-up Social History Tobacco Use Types Packs/Day Years Used Date Smoking Tobacco: Never Depression Answer Date Recorded Patient Health Questionnaire-9 [...] Recorded Patient Health Questionnaire-2 Score 4 10/08/2023 Sex and Gender Information Value Date Recorded Sex Assigned at Male 02/02/2022 10:15 AM EDT Legal Sex Male 10:15 AM EDT Gender Identity Choose not to disclose 10:15 AM EDT Sexual Orientation Choose not to disclose 2021 10:15 AM EDT documented as of this encounter Miscellaneous Notes * Telephone Encounter - Flaquito Grace - 10/22/2023 10:31 AM EDT Patient calling to report ED visit on : Date: 10/17/23-10/22/23 Hospital: [facility] Seen for: Hypertensive, Disoriented Diagnoses: Hyponatremic Patient advised will forward to team nurse for follow up documented in this encounter Plan of Treatment Not on file documented as of this encounter Visit Diagnoses Not on filedocumented in this encounter Additional Health Concerns Assessment Noted Time PHQ-9 Depression Total Score: 13 024 8:45 AM EDT documented as of this encounter Care Teams Pulp Grinder Relationship Specialty Start Date End Date Aisha Walton MD [address] [place] [address] PCP - General Family Medicine 07/23/15 documented as of this encounter
--- OUTSIDE RECORDS SUMMARY | 2025-02-23 15:31 | XMS_ITS | Patient Health Record ---
Author Organization [facility] Address [address] [place] [phone] Care Team Providers Care Trenching Machine Operator Name Role Phone Isabelle PALMA, Aisha Primary Care Provider Kristian Pereira [phone] Allergies No Known Allergies Reason For Referral No Information Medications Medication SIG (Take, Route, Frequency, Duration) Notes Start Date End Date Status Atorvastatin Calcium 10 MG Tablet TAKE 1 TABLET BY MOUTH EVERY DAY IN THE MORNING Oral; Duration: 90 Active Aspirin Low Dose 81 MG Tablet Delayed Release TAKE 1 TABLET BY MOUTH EVERY DAY Oral; Duration: 90 Not-Taking/MI N Cetirizine HCl 10 MG Tablet TAKE 1 TABLET (10 MG) BY MOUTH DAILY NEEDED FOR ALLERGIES Oral; Duration: 90 Active Omeprazole 20 MG Capsule Delayed Release TAKE 1 CAPSULE BY MOUTH EVERY DAY BEFORE A MEAL Oral; Duration: 90 once or twice per week Active traZODone HCl 50 MG Tablet TAKE 1 TABLET BY MOUTH AT BEDTIME Oral; Duration: 90 Active Fluticasone Propionate 50 MCG/ACT Suspension SPRAY 1 SPRAY INTO EACH NOSTRIL EVERY DAY Nasal; Duration: 90 Active MiraLax (colon prep) 17 GM/SCOOP Powder 1 238Gm bottle of Miralax mixed with Gatorade or Crystal Light Orally begin at 5:00 p.m. the day before the procedure; Duration: 1 day 08/31/2023 Active Verapamil HCl ER 300 MG Capsule Extended Release 24 Hour 1 capsule Orally Once a day; Duration: 30 day(s) Active Dulcolax (colon prep) 5 MG Tablet Delayed Release take at 3:00 p.m and 7:00p.m. Orally two tablets twice a day for one day; Duration: 1 day 08/31/2023 Active Lisinopril 40mg 1 po q12 h Act sofia Chlorthalidone 25 MG Tablet TAKE 1 TABLET BY MOUTH EVERY DAY Oral; Duration: 20 Active Tamsulosin HCl 0.4 MG Capsule TAKE 1 CAPSULE BY MOUTH EVERY DAY IN THE MORNING Oral; Duration: 90 Active Immunizations Vaccine Route Administration Date Status Comme nts Influenza Unknown 08/31/2023 Refused Social History Social History Drugs/Alcohol: Social Info Question Answer Notes Alcohol Screen Did you have a drink containing alcohol in the past year? No Points 0 Interpretation Negative Additional Details Category Social Info Options Details Miscellaneous: Marital status: Occupation: unemployed Section Notes: Nonsmoker; no sig alcohol Nonsmoker; no sig alcohol Problems Problem Type SNOMED Code ICD Code Onset Dates Problem Status W/U Status Risk Notes Problem Colon cancer screening (747256884) Colon cancer screening (Z12.11) Active confirmed Problem Diverticular disease of colon (695152885) Diverticulosis of large intestine without perforation or abscess without bleeding (K57.30) Active confirmed Problem History of hepatitis C (33279964963969) History of hepatitis C (Z86.19) Active confirmed Problem Hepatic fibrosis (disorder) (59106884) Liver fibrosis (K74.00) Active confirmed Encounters Encounter Location Date Provider Diagnosis [facility] [place] [place] Outpatient [address] [place] [phone] 03/20/2024 Kristian Chi Colon cancer scree daquan [...] hemorrhoids (ICD-10 - K64.8) Plan Of Treatment Pending Test Test Name Order Date LIVER PROFILE 08/31/2023 CBC w DIFF 08/31/2023 ALPHA-FETOPROTEIN,TUMOR MARKER 4 HEPATITIS C VIRAL LOAD 08/31/2023 HCV LIVER FIBROSIS, FIBRO TEST 4 Prothrombin Time INR 08/31/2023 US abdomen comp w elastography 4 Future Test Test Name Order Date UPPER GI ENDOSCOPY 04/13/2013 COLONOSCOPY 04/13/2013 COLONOSCOPY 08/31/2023 Insurance Providers Payer Name Payer Address Payer Phone Subscriber Number Group Number Insured Name Patient Relationship to Insured Coverage Start Date Coverage End Date MED[place] OF [place] [address] [place] [phone] [id number] [id number] Self - patient is the insured Medical (General) History Medical History History ICD Code Depression Hypertension Hepatitis C-s/p Rx in 2006- 8 weeks of Peg-IF and Ribavirin -- neg Hep C RNA in 05/2007 and 11/2008---liver bx in 2003 with Gr 2/4 and Stage I/IV--Genotype 1 Denies [place],DM,CVA,Lung disease, renal bridget sease Describes UGI bleed at [facility] in 02/2013-no EGD done, no transfusions, he was there for about 2 days--treated with Nexium for 1 month Negative colonoscopy 06/2013 EGD 06/2013 with small hiatal hernia, GERD, and Gastritis with H.pylori--no Aragon's, no esophagitis Surgical History Surgery Date(Month/Year)
--- OUTSIDE RECORDS SUMMARY | 2025-02-23 15:31 | XMS_ITS | Clinical Summary ---
Author Organization [address] [facility] Address [address] [place] [address] Phone Care Team Providers Care Executive Office Manager Name Role Phone Aisha Walton MD Primary Care Provider [phone] Allergies No known active allergies Medications alpha lipoic acid 600 mg tablet Take 1 tablet by mouth 1 (one) time each day. 30 tablet 2 5 03/21/20 25 Active lidocaine (LIDODERM) 5 % patch Apply 1 patch topically 1 (one) time each day. Remove & discard patch within 12 hours or as directed by . 30 each 2 5 03/21/20 25 Active diclofenac (Voltaren Arthritis Pain) 1 % topical gel Apply 4 g topically 2 (two) times a day. 240 g 1 5 02/20/20 25 Encounters Date Type Department Care Team Description 12/21/2024 10:45 AM EDT Office Visit Orthopedic Surgery [facility] [address] [address] Nato Miguel, DPM Neuritis (Primary Dx); Primary osteoarthritis of both feet; Chronic gout involving toe without tophus, unspecified cause, unspecified laterality from Last 3 Months Social History Tobacco Use Types Packs/Day Years Used Date Smoking Tobacco: Never Assessed Sex and Gender Information Value Date Recorded Sex Assigned at Not on file Legal Sex Male 8:38 AM EDT Gender Identity Not on file Sexual Orientation Not on file Last Filed Vital Signs Vital Sign Reading Time Taken Comments Blood Pressure - - Pulse - - Temperature - - Respiratory Rate - - Oxygen Saturation - - Inhaled Oxygen Concentration - - Weight 99.8 kg (220 lb) 11/07/2024 8:42 AM EDT Height 188 cm (6' 2 ) 11/07/2024 8:42 AM EDT Body Mass Index 28.25 11/07/2024 8:42 AM EDT Plan of Treatment Health Maintenance Due Date Last Done Comments Colorectal Cancer Screening: Colonoscopy 1960 RSV Immunization Adult Patients (1 - Risk 50-74 years 1-dose series) 2012 Zoster Vaccines (2 of 3) 09/14/2013 07/20/2013 Hepatitis B Vaccines (1 of 3 - Risk 3-dose series) 2022 Depression Screening 04/05/2024 Cholesterol Screening (Lipid Panel) 08/17/2024 HIV Screening 08/17/2024 Social Influencers of Health Screening 08/17/2024 COVID-19 Vaccine (3 - 2024-2 6 season) 2024 12/04/2020, 11/13/2020 Influenza Vaccine (#1) 2024 06/20/2018 Hypertension/CHF/CAD Annual BMP Blood Test 08/30/2025 08/30/2024 DTaP,Tdap,and Td Vaccines (3 - Td or Tdap) 01/19/2034 01/20/2024, 07/20/2013 Hepatitis A Vaccines Completed 08/08/2024, 01/20/2024 Pneumococcal Vaccine: 50+ Years Completed 08/08/2024 Hepatitis C Screening Completed 08/30/2024 HIB Vaccines Aged Out No longer eligi ble based on patient's age to complete this topic HPV Vaccines Aged Out No longer eligi ble based on patient's age to complete this topic IPV Vaccines Aged Out No longer eligi ble based on patient's age to complete this topic MMR Vaccines Aged Out No longer eligi ble based on patient's age to complete this topic Meningococcal ACWY Vaccine Aged Out N o longer eligible based on patient's age to complete this topic Meningococcal B Vaccine Aged Out No l onger eligible based on patient's age to complete this topic RSV Immunization Patients Under 20 months Aged Out No longer eligible b ased on patient's age to complete this topic Varicella Vaccines Aged Out No longer eligible based on patient's age to complete this topic Insurance MEDICAID - [place] Care Teams Executive Office Manager Relationship Specialty Start Date End Date Aisha Walton MD [address] [place] [phone] PCP - General Family Medicine 08/17/24
--- OUTSIDE RECORDS SUMMARY | 2025-02-23 15:31 | XMS_ITS | Encounter Summary ---
Author Organization [employer] Address [address] [facility] 7t [place] [address] Care Team Providers Care Plant Care Worker Name Role Phone Aisha Walton MD Primary Care Provider [phone] Reason for Visit * Reason Onset Date Comments Med Refill 01/10/2025 Encounter Details Date Type Department Care Team ([facility] st Contact Info) Description 01/10/2025 Telephone [facility] MEDICINE [address] [place], [place] [phone] Aisha Walton MD [address] [place], [place] [phone] Med Refill Social History Tobacco Use Types Packs/Day Years Used Date Smoking Tobacco: Never Passive Smoke Exposure: Never Alcohol Use Standard Drinks/Week Comments Never 0 (1 standard drink = 0.6 oz pur e alcohol) Alcohol Answer Date Recorded Frequency of Alcohol Consumption Not on file 01/20/2024 Average Number of Drinks Not on file 024 Frequency of Binge Drinking Not on file 01/03 Score 0 01/20/2024 Depression Answer Date Recorded Patient Health Questionnaire-9 Score 20 11/13/2024 Patient Health Questionnaire-9 Score 20 11/13/2024 Last PHQ-9: Questionnaire Data Not on file 0 11/13/2024 Housing Stability Answer Date Recorded What is your housing situation today? I have housing today, but I am worried about losing housing in the future 08/08/[address] you li ve. Do you have problems with any of the following? I am not sure 08/08/2024 Food Insecurity Answer Date Recorded Within the past 12 months, y ou worried that your food would run out before you got money to buy more: Often true 08/08/2024 Within the past 12 months,th e food you bought just didn't last and you didn't have enough money to get more: Often true 09/2024 Transportation Answer Date Recorded In the past 12 months, has l ack of transportation kept you from medical appts, meetings, work or from getting things needed for daily living? Yes, it has kept me from medical appointments or getting medications. 08/08/2024 Utilities Answer Date Recorded In the past 12 months, has t he electric, gas, oil or water company threatened to shut off services in your home? No 08/08/2024 Depression Answer Date Recorded Patient Health Questionnaire-2 Score 6 11/13/2024 Internet Access Answer Date Recorded Internet Access [...] encounter Miscellaneous Notes * Telephone Encounter - Olivia Phelps LPN - 01/10/2025 10:21 AM EDT Medication pended to PCP. * Telephone Encounter - Vanessa Diehl - 01/10/2025 10:13 AM EDT TC from pt requesting medication refill. Medications needing refill : - amLODIPine (Norvasc) 10 MG tablet To be sent to: [facility]/pharmacy #[id number] - [place], [place] - [address] [place] [address] documented in this encounter Plan of Treatment Not on file documented as of this encounter Visit Diagnoses Not on filedocumented in this encounter Additional Health Concerns Assessment Noted Time PHQ-9 Depression Total Score: 20 025 10:50 AM EDT documented as of this encounter Care Teams Plant Care Worker Relationship Specialty Start Date End Date Aisha Walton MD [address] [place] [address] PCP - General Family Medicine 07/23/15 documented as of this encounter
--- OUTSIDE RECORDS SUMMARY | 2025-02-23 15:31 | XMS_ITS | Encounter Summary ---
Author Organization [employer] Address [address] [facility] 7t [place] [address] Care Team Providers Care Disease Intervention Specialist Name Role Phone Aisha Walton MD Primary Care Provider [phone] Encounter Details Date Type Department Care Team (Late st Contact Info) Description 10/06/2023 Orders Only [facility] MEDICINE [address] [place], [place] [phone] Aisha Walton MD [address] [place], [place] [phone] Social History Tobacco Use Types Packs/Day Years [...] AM EDT documented as of this encounter Functional Status * Over the past 2 weeks, how often have you been bothered by any of the following problems? Question Answer Date of Assessment Author Patient Health Questionnaire-2 Score 4 10/08/2023 8:45 AM EDT Nadya Padilla LMHC * How difficult have these problems made it for you to do your work, take care of things at home, or get along with other people? Answer Date of Assessment Author Very difficult 10/08/2023 8:45 AM EDT Nadya Lopez LMHC * Over the last 2 weeks, how often have you been bothered by any of the following problems? Question Answer Date of Assessment Author Feeling nervous, anxious, or on edge 3 10/08/2023 8:46 AM EDT Natalie Padilla LMHC Not being able to stop or control worrying 3 10/08/2023 8:46 AM EDNatalie Jefferson LMHC Worrying too much about different things 3 10/08/2023 8:46 AM EDNatalie Jefferson LMHC Trouble relaxing 2 10/08/2023 8:46 AM EDT Nadya Calderon LMHC Being so restless that it is hard to sit still 2 10/08/2023 8:46 AM EDNatalie Jefferson LMHC Becoming easily annoyed or irritable 1 10/08/2023 8:46 AM EDNatalie Jefferson LMHC Feeling afraid as if something awful might happen 2 10/08/2023 8:46 AM EDNadya Washington Ba, LMHC MELINDA-7 Total Score 16 10/08/2023 8:46 AM Nadya Coleman LMHC * Over the past 2 weeks, how often have you been bothered by any of the following problems? Question Answer Date of Assessment Author Little interest or pleasure in doing things Nearly every day 10/08/2023 8:45 AM Nadya Ricks LMHC Feeling down, depressed, or hopeless Several days 10/08/2023 8:45 AM Nadya Coleman LMHC Trouble falling or staying asleep, or sleeping too much Nearly every day 10/08/2023 8:45 AM Nadya Coleman LMHC Feeling tired or having little energy More than half the days 10/08/2023 8:45 AM Nadya Coleman LMHC Poor appetite or overeating Several days 10/08/2023 8:45 AM Nadya Coleman LMHC Feeling bad about yourself - or that you are a failure or have let yourself or your family down Several days 10/08/2023 8:45 AM Nadya Coleman LMHC Trouble concentrating on things, such as reading the newspaper or watching television More than half the days 10/08/2023 8:45 AM Nadya Coleman LMHC Moving or speaking so slowly that other people could have noticed? Or the opposite - being so fidgety or restless that you have been moving around a lot more than usual. Not at all 10/08/2023 8:45 AM Nadya Coleman LMHC Thoughts that you would be better off or hurting yourself in some way Not at all 10/08/2023 8:45 AM Nadya Coleman LMHC Patient Health Questionnaire-9 Score 13 10/08/2023 8:45 AM Nadya Coleman LMHC documented as of this encounter Plan of Treatment Not on file documented as of this encounter Visit Diagnoses Not on filedocumented in this encounter Additional Health Concerns Assessment Noted Time PHQ-9 Depression Total Score: 2 10/06/19 24 4:06 PM EDT documented as of this encounter Care Teams Disease Intervention Specialist Relationship Specialty Start Date End Date Aisha Walton MD [address] [place] [address] PCP - General Family Medicine 07/23/15 documented as of this encounter
--- OUTSIDE RECORDS SUMMARY | 2025-02-23 15:31 | XMS_ITS | Encounter Summary ---
Author Organization [facility] Address [address] [place] [address] Care Team Providers Care Retail Cashier Associate Name Role Phone Aisha Walton MD Primary Care Provider [phone] Encounter Details Date Type Department Care Team (Late st Contact Info) Description 12/16/2022 Orders Only [facility] [address] [place], [place] [phone] Aisha Walton MD [address] [place], [place] [phone] Hypertension, unspecified type (Primary Dx); Dyslipidemia; Benign prostatic hyperplasia, unspecified whether lower urinary tract symptoms present Social History Tobacco Use Types Packs/Day Years Used Date Smoking Tobacco: Never Assessed Sex and Gender Information Value Date Recorded Sex Assigned at Male 02/02/2022 10:15 AM EDT Legal Sex Male 10:15 AM EDT Gender Identity Choose not to disclose 10:15 AM EDT Sexual Orientation Choose not to disclose 2021 10:15 AM EDT documented as of this encounter Plan of Treatment Scheduled Orders Name Type Priority Associated Diagnoses Orde r Schedule Comprehensive Metabolic Panel Lab Routine Hypertension, unspecified type Expected: 12/16/2022 (Approximate), Expires: 12/17/2023 Lipid Panel with Reflex to Direct LDL Lab Routine Dyslipidemia Expected: 12/16/2022 (Approximate), Expires: 12/17/2023 PSA,Total Lab Routine Benign prostatic hyperplasia, unspecified whether lower urinary tract symptoms present Expected: 12/16/2022, Expires: 12/17/2023 documented as of this encounter Visit Diagnoses Diagnosis Hypertension, unspecified type- Primary Dyslipidemia Other and unspecified hyperlipidemia Benign prostatic hyperplasia, unspecified whether lower urinary tract symptoms present documented in this encounter Care Teams Retail Cashier Associate Relationship Specialty Start Date End Date Aisha Walton MD [address] [place] [address] PCP - General Family Medicine 07/23/15 documented as of this encounter
--- OUTSIDE RECORDS SUMMARY | 2025-02-23 15:31 | XMS_ITS | Clinical Summary ---
Author Organization [employer] Address [address] [place] [address] Care Team Providers Care Prune Washer Name Role Phone Willard Walton MD Primary Care Provider [phone] Allergies No known active allergies Medications * This document contains information received from the source organization and may not represent a complete record from that organization. fluticasone (Flonase) 50 MCG/ACT nasal sprayIndications :Allergic rhinitis, unspecified seasonality, unspecified trigger SPRAY 1 SPRAY INTO EACH NOSTRIL EVERY DAY 16 g 11 4 Active Diclofenac Sodium 1 % gel Apply to affected area once or twice daily as needed 150 g 3 4 Active Blood Pressure Monitor misc Check BP daily 1 each 4 Active colchicine 0.6 MG tablet Take 1/2 tablet twice daily or 1 tablet once daily as needed for gout pain 30 tablet 3 4 Active cetirizine (ZyrTEC) 10 MG tabletIndication s:Allergic rhinitis, unspecified seasonality, unspecified trigger TAKE 1 TABLET (10 MG) BY MOUTH DAILY NEEDED FOR ALLERGIES 90 tablet 1 4 Active lidocaine (Lidoderm) 5 % patch APPLY 1 PATCH TO AFFECTED AREA. WEAR FOR 12 HOURS THEN REMOVE FOR 12 HOURS. REPEAT DAILY NEEDED FOR PAIN. 4 Active Aspirin Low Dose 81 MG EC tablet TAKE 1 TABLET BY MOUTH EVERY DAY 90 tablet 3 5 Active tamsulosin (Flomax) 0.4 MG 24 hr capsuleIndicatio ns:Benign prostatic hyperplasia, unspecified whether lower urinary tract symptoms present TAKE 1 CAPSULE BY MOUTH EVERY DAY IN THE MORNING 90 capsule 3 5 Active atorvastatin (Lipitor) 10 MG tabletIndication s:Dyslipidemia TAKE 1 TABLET BY MOUTH EVERY DAY IN THE MORNING 90 tablet 3 5 Active omeprazole (PriLOSEC) [address] capsuleIsaak ns:Gastroesophag eal reflux disease, unspecified whether esophagitis present TAKE 1 CAPSULE BY MOUTH EVERY DAY BEFORE A MEAL 90 capsule 3 5 Active metoprolol succinate XL (Toprol XL) 25 MG 24 hr tablet Take 1 tablet (25 mg) by mouth Once per day. Do not crush or chew. 90 tablet 3 5 08/09/19 26 Active allopurinol (Zyloprim) 100 MG tablet TAKE 1 TABLET BY MOUTH EVERY DAY 90 tablet 3 5 Active escitalopram (Lexapro) 10 MG tablet Take 1 tablet by mouth daily for 1 week, then take 2 tablets by mouth everyday 90 tablet 3 5 Active lisinopril 40 MG tablet TAKE 1 TABLET BY MOUTH EVERY DAY 90 tablet 1 5 Active amLODIPine (Norvasc) 10 MG tablet TAKE 1 TABLET BY MOUTH EVERY DAY 90 tablet 5 Active Active Problems Problem Noted Date Diagnosed Date Prostate cancer ([facility]) 08/13/2024 Assessment & Plan (08/13/2024 7:02 AM EDT): - PI-RADS 5 on MRI and elevated PSA - TRUSP Bx in Jan 2024. 2 out of 13 samples were positive for adenocarcinoma. Patient elevated no treatment and monitoring. - Last seen by urologist in May 2024. Scheduling for TRUSP Bx in Jan 2025. Bilateral foot pain 08/08/2024 Assessment & Plan (11/19/2024 6:12 PM EDT): - He had a normal FRANCES ultrasound in October 2023 -Seen by roaster operator on 11/07/2024. Current diagnosis: Gout; neuritis; bilateral feet pain. - Continue medications, lidocaine topical and diclofenac gel as prescribed by roaster operator - Evaluate neuritis with EMG/NCT Assessment & Plan (08/08/2024 11:01 AM EDT): - Unlikely to be Gout. Will evaluate with lab. - Will refer to roaster operator - He had a normal FRANCES ultrasound in October 2023 Hyponatremia 11/04/2023 Assessment & Plan (11/19/2024 6:04 PM EDT): - iatrogenic / medication side effects (thiazide diuretic and SSRI) - last sodium level was normal - chlorthalidone was discontinued - continue current medications - patient is still on escitalopram, and is increasing its dose today; recheck lab Assessment & Plan (08/13/2024 11:03 AM EDT): - will monitor with labs - patient will continue using same pharmacy - continue current medications - patient is still on escitalopram, will consider changing to another medication Assessment & Plan (01/20/2024 10:34 AM EDT): - will monitor with labs - patient will continue using same pharmacy - continue current medications - patient is still on lexapro, will consider changing to another medication Assessment & Plan (11/04/2023 4:00 PM EDT): Improved at hospital discharge. Apparently related to thiazides, med dc now. Check BMP today, may need to monitor Na with other meds SSRI, allopurinol Metabolic dysfunction-associ ated steatotic liver disease (MASLD) 10/08/2023 Assessment & Plan (11/19/2024 6:06 PM EDT): - possible MetALD (Hx alcohol use, not current) - Following with Dr. Chi - Last liver profile: August 2024 - FIB4 index: 1.04 - Fibrosis stage F1 - US elastofraphy: 09/13/23 Shear wave liver elastography median stiffness is 1.97 m/s, suggestive of compensated advanced chronic liver disease. - Hx positive Hep C antibody; recheck lab Assessment & Plan (08/13/2024 10:56 AM EDT): - possible MetALD (Hx alcohol use, not current) - Following with Dr. Chi - Last liver profile: Jan 2024 - FIB4 index: 0.87 - Fibrosis stage F1 - US elastofraphy: 09/13/23 Shear wave liver elastography median stiffness is 1.97 m/s, suggestive of compensated advanced chronic liver disease. - Hx positive Hep C antibody; recheck lab Assessment & Plan (10/08/2023 12:10 PM EDT): - possible MetALD (Hx alcohol use, not current) - Following with Dr. Chi - Last liver profile: 04/07/23 - FIB4 index: 0.64 - Fibrosis stage F1 - US elastofraphy: 09/13/23 Shear wave liver elastography median stiffness is 1.97 m/s, suggestive of compensated advanced chronic liver disease. - Continue working on lifestyle modifications and surveillance study Gout 10/08/2023 Assessment & Plan (11/19/2024 6:08 PM EDT): - 1st attack in left ankle, seen in ED, started on prednisone - check uric acid level (ESR and CRP may not be elevated because he is already on prednisone) - continue colchicine for episodic use - low purine diet Assessment & Plan (08/08/2024 9:19 AM EDT): - 1st attack in left ankle, seen in ED, started on prednisone - check uric acid level (ESR and CRP may not be elevated because he is already on prednisone) - continue colchicine for episodic use - low purine diet Assessment & Plan (01/20/2024 10:33 AM EDT): - 1st attack in left ankle, seen in ED, started on prednisone - check uric acid level (ESR and CRP may not be elevated because he is already on prednisone) - continue colchicine for episodic use - low purine diet Assessment & Plan (11/04/2023 3:53 PM EDT): No acute attack since he started allopurinol daily I gave hm info re low purine diet, he has rx colchicine to take ANDREA joint edema/pain Assessment & Plan (10/08/2023 12:13 PM EDT): - 1st attack in left ankle, seen in ED, started on prednisone - check uric acid level (ESR and CRP may not be elevated because he is already on prednisone) - If uric acid is elevated, will start allopurinol - start colchicine for episodic use - low purine diet Left elbow pain 04/16/2023 Assessment & Plan (08/08/2024 9:19 AM EDT): - chronic - seen by [facility] Ortho and Dx olecranon bone spur. Rx diclofenac - since patient has not taken diclofenac PO and has GERD, will prescribe topical diclofenac. - activity modification - refer to orthopedist in [place] Assessment & Plan (04/16/2023 9:41 AM EST): - chronic - seen by [facility] Ortho and Dx olecranon bone spur. Rx diclofenac - since patient has not taken diclofenac PO and has GERD, will prescribe topical diclofenac. - activity modification - refer to orthopedist in [place] MELINDA (generalized anxiety disorder) 04/15/2023 Assessment & Plan (08/08/2024 9:21 AM EDT): - MELINDA score 21 in Apr 2023 - starting escitalopram today Assessment & Plan (10/08/2023 11:59 AM EDT): - MELINDA score 21 in Apr 2023 - starting escitalopram today Assessment & Plan (10/08/2023 9:17 AM EDT): During IBH Consult Travis presenting with depressed mood, loss of interests/pleasure , changes in sleep difficulty falling asleep, psychomotor retardation, trouble concentrating, thoughts of worthlessness or guilt, fatigue/loss of energy, worthlessness , difficulty concentrating and excessive worry/anxiety, difficulty controlling worry, restless/keyed up/On edge, easily fatigued, difficulty concentrating/Mind going blank , muscle tension, and sleep disturbance difficulty falling asleep; for a period of 18+ mo, for all symptoms in the context of chronic mental health illness. Travis reported having severe anxiety; sxs have been present on and off for the last 10 years. He's unable to work due to severity of mental health condition which causes more stress and brings financial issues. Difficulty trusting others makes it difficult to share feelings. PCP will re-start medication to treat anxiety (see PCP note). During today's consult, Trvais was engaged with active, reflective, and empathetic listening. Reviewed and assessed risks factors, current triggers, social supports using open-ended questions. Travis was flexible and open to explore breathing techniques during today's session. PLAN: (check all that apply) Continue with current services (defined as services in the past 12 months) Behavioral Health Integration Plan Internal Follow up with [facility] Patient Self Plan Patient to utilize skills provided in intervention , Patient to reach out to HHC team as needed, Comply with medication , Patient to engage in OP therapy , and Patient to reach out to [facility] as needed. Patient was referred to [facility], he's currently on waiting list. clinician provided contact number of agency to request update. [facility] numbers provided for same-day appointments. Assessment & Plan (04/20/2023 12:16 PM EST): During IBH Consult Travis presenting with depressed mood, loss of interests/pleasure , trouble concentrating, fatigue/loss of energy, inappropriate guilt , hopelessness, worthlessness , difficulty concentrating and excessive worry/anxiety, difficulty controlling worry, restless/keyed up/On edge, easily fatigued, difficulty concentrating/Mind going blank , irritability, and muscle tension; for a period of 18+ mo, for all symptoms in the context of illness or family illness and employment concern. Travis reported having panic attacks. Due to severity of anxiety he's unable to work causing more stress in his life. Sx have been present on and off for the last 10 years. Children with ADHD and autism increase sense of fear. PLAN: (check all that apply) New/Additional Services needed PCP management Off-site services for . Referral for OP individual therapy will be place. [facility] clinician will be available if needed during next physical appointment. GERD (gastroesophageal reflux disease) Assessment & Plan (08/08/2024 9:18 AM EDT): - continue omeprazole 20 mg daily - avoid irritants - judicious use of NSAIDs - if worsening symptom, consider EGD at the time of colonoscopy. Assessment & Plan (10/08/2023 11:56 AM EDT): - continue omeprazole 20 mg daily - avoid irritants - judicious use of NSAIDs - if worsening symptom, consider EGD at the time of colonoscopy. Assessment & Plan (04/16/2023 9:44 AM EST): - restart omeprazole 20 mg daily - avoid irritants - judicious use of NSAIDs - if worsening symptom, consider EGD at the time of colonoscopy. BPH (benign prostatic hyperplasia) 12/16/2022 Assessment & Plan (08/13/2024 10:51 AM EDT): - Followed by [facility] - s/p TURP biopsy, which has been negative in the past - restarted tamsulosin 0.4 mg daily in Apr 2023 - MRI in December 2023. PI-RADS 5. Patient had TRUSP biopsy and was positive for adenocarcinoma of prostate. Assessment & Plan (01/25/2024 10:08 AM EDT): - Previously followed by [facility], last note in Dec 2023 - s/p TURP biopsy which was negative - restarted tamsulosin 0.4 mg daily in Apr 2023 - last PSA 7 in Apr 2023; [facility], but patient lost insurance and was unable to schedule - patient was seen by urologist and had an MRI in December 2023. Patient had biopsy and states that he has an appointment tomorrow. Assessment & Plan (11/04/2023 3:52 PM EDT): Back on Flomax, advised no to stop med until he sees urology on 11/25/23. Assessment & Plan (10/08/2023 11:53 AM EDT): - Previously followed by [facility], last note in Mar 2020 - s/p TURP biopsy which was negative - restarted tamsulosin 0.4 mg daily in Apr 2023 - last PSA 7 in Apr 2023; referred back to [facility] urolog, but patient lost insurance and was unable to schedule - refer back again Assessment & Plan (04/16/2023 9:45 AM EST): - Previously followed by [facility] Urology, last note in Mar 2020 - s/p TURP biopsy which was negative - restart tamsulosin 0.4 mg daily Allergic rhinitis 11/30/2016 Assessment & Plan (08/08/2024 9:20 AM EDT): - restart cetirizine and fluticasone nasal Assessment & Plan (10/08/2023 3:25 PM EDT): - restart cetirizine and fluticasone nasal Assessment & Plan (04/16/2023 9:46 AM EST): - restart cetirizine and fluticasone nasal Dyslipidemia 09/23/2015 Assessment & Plan (11/19/2024 6:03 PM EDT): - last lipid profile in August 2024 - current medication: atorvastatin 10 mg at bedtime - continue working on lifestyle modification Assessment & Plan (08/09/2024 5:01 PM EDT): - last lipid profile in 01/20/24 - current medication: atorvastatin 10 mg at bedtime - continue working on lifestyle modification Assessment & Plan (01/20/2024 10:02 AM EDT): - last lipid profile in 04/27/23 - current medication: atorvastatin 10 mg at bedtime - continue working on lifestyle modification Assessment & Plan (10/08/2023 11:58 AM EDT): - last lipid profile in 2019 - current medication: atorvastatin 10 mg at bedtime - continue working on lifestyle modification Assessment & Plan (04/14/2023 3:32 PM EST): - last lipid profile in 2019 - current medication: atorvastatin 10 mg at bedtime - continue working on lifestyle modification History of alcohol use disorder 09/23/2015 MDD (major depressive disorder) 09/23/2015 Assessment & Plan (11/19/2024 6:06 PM EDT): >>ASSESSMENT AND PLAN FOR RECURRENT MAJOR DEPRESSION (CMS/HCC) WRITTEN ON 04/16/2023 9:46 AM BY WILLARD WALTON MD - Previously taking quetiapine 75mg at bedtime - Prescribed trazodone 50 mg at bedtime - Seen by [facility] clinician today; will be referred to a S provider in [place] Assessment & Plan (11/19/2024 6:06 PM EDT): >>ASSESSMENT AND PLAN FOR RECURRENT MAJOR DEPRESSION (CMS/HCC) WRITTEN ON 04/20/2023 12:16 PM BY GUI MONROY During IBH Consult Travis presenting with depressed mood, loss of interests/pleasure , trouble concentrating, fatigue/loss of energy, inappropriate guilt , hopelessness, worthlessness , difficulty concentrating and excessive worry/anxiety, difficulty controlling worry, restless/keyed up/On edge, easily fatigued, difficulty concentrating/Mind going blank , irritability, and muscle tension; for a period of 18+ mo, for all symptoms in the context of illness or family illness and employment concern. Travis reported having panic attacks. Due to severity of anxiety he's unable to work causing more stress in his life. Sx have been present on and off for the last 10 years. Children with ADHD and autism increase sense of fear. PLAN: (check all that apply) New/Additional Services needed PCP management Off-site services for . Referral for OP individual therapy will be place. [facility] clinician will be available if needed during next physical appointment. Assessment & Plan (11/19/2024 6:06 PM EDT): >>ASSESSMENT AND PLAN FOR RECURRENT MAJOR DEPRESSION (CMS/HCC) WRITTEN ON 10/08/2023 11:59 AM BY WILLARD WALTON MD - Previously taking quetiapine 75mg at bedtime - Prescribed trazodone 50 mg at bedtime - PHQ9 score 15 in Apr 2023 - Will start escitalopram. 5 mg daily for 1 week, then 10 mg daily. Will obtain EKG due to its effect on QTc - Seen by iB clinician today again; will be referred to a S provider in [place] Assessment & Plan (11/19/2024 6:06 PM EDT): >>ASSESSMENT AND PLAN FOR RECURRENT MAJOR DEPRESSION (CMS/HCC) WRITTEN ON 10/08/2023 9:17 AM BY GUI MONROY During IB Consult Travis presenting with depressed mood, loss of interests/pleasure , changes in sleep difficulty falling asleep, psychomotor retardation, trouble concentrating, thoughts of worthlessness or guilt, fatigue/loss of energy, worthlessness , difficulty concentrating and excessive worry/anxiety, difficulty controlling worry, restless/keyed up/On edge, easily fatigued, difficulty concentrating/Mind going blank , muscle tension, and sleep disturbance difficulty falling asleep; for a period of 18+ mo, for all symptoms in the context of chronic mental health illness. Travis reported having severe anxiety; sxs have been present on and off for the last 10 years. He's unable to work due to severity of mental health condition which causes more stress and brings financial issues. Difficulty trusting others makes it difficult to share feelings. PCP will re-start medication to treat anxiety (see PCP note). During today's consult, Travis was engaged with active, reflective, and empathetic listening. Reviewed and assessed risks factors, current triggers, social supports using open-ended questions. Travis was flexible and open to explore breathing techniques during today's session. PLAN: (check all that apply) Continue with current services (defined as services in the past 12 months) Behavioral Health Integration Plan Internal Follow up with [facility] Patient Self Plan Patient to utilize skills provided in intervention , Patient to reach out to [facility] team as needed, Comply with medication , Patient to engage in OP therapy , and Patient to reach out to CB as needed. Patient was referred to [facility], he's currently on waiting list. clinician provided contact number of agency to request update. [facility] numbers provided for same-day appointments. Assessment & Plan (11/19/2024 6:06 PM EDT): >>ASSESSMENT AND PLAN FOR RECURRENT MAJOR DEPRESSION (CMS/HCC) WRITTEN ON 01/20/2024 10:32 AM BY YOUSUF HOUSE - Previously taking quetiapine 75mg at bedtime - Prescribed trazodone 50 mg at bedtime - PHQ9 score 15 in Apr 2023 - Currently on escitalopram 10 mg daily. Will monitor symptoms and hyponatremia. Consider changing to another medication due to possible side effects. - Seen by [facility] clinician today again; will be referred to a S provider in [place] Assessment & Plan (11/19/2024 6:10 PM EDT): - PHQ9 score 24 and GAD7 score 18 on 08/08/24 -PHQ-9 score 20 and MELINDA-7 score 18 on 11/13/2024 - seen by integrated behavioral health service clinician today - Increase escitalopram 10 mg daily. Caution with hyponatremia which happened in the past Assessment & Plan (11/19/2024 6:06 PM EDT): >>ASSESSMENT AND PLAN FOR MDD (MAJOR DEPRESSIVE DISORDER) WRITTEN ON 08/13/2024 11:03 AM BY WILLARD WALTON MD - PHQ9 score 24 and GAD7 score 18 on 08/08/24 - seen by integrated behavioral health service clinician today - scheduling appointment with Ja Blackwood - continue escitalopram 10 mg daily. Caution with hyponatremia which happened in the past >>ASSESSMENT AND PLAN FOR RECURRENT MAJOR DEPRESSION ([facility]/HCC) WRITTEN ON 08/08/2024 9:20 AM BY EDINSON RASMUSSEN MA - Previously taking quetiapine 75mg at bedtime - Prescribed trazodone 50 mg at bedtime - PHQ9 score 15 in Apr 2023 - Currently on escitalopram 10 mg daily. Will monitor symptoms and hyponatremia. Consider changing to another medication due to possible side effects. - Seen by [facility] clinician today again; will be referred to a S provider in [place] Bilateral hydrocele 09/01/2012 Assessment & Plan (04/14/2023 3:28 PM EST): - s/p left hydrocelectomy in 2019 Hypertension 09/01/2012 Assessment & Plan (11/19/2024 6:00 PM EDT): -Goal BP < 130/80 per ACC/AHA guideline (Treatment threshold >= 140/90 ) -BP not at goal today -Improve adherence to self-monitoring BP at home -Continue working on lifestyle modifications and stress reduction -Continue amlodipine 10 mg daily -Continue Lisinopril 40 mg daily -(Continue tamsulosin for BPH) - Continue metoprolol succinate 25 mg daily - Treatment History: previously on chlorthalidone but was discontinued due to hyponatremia; Verapamil was switched to amlodipine in November 2023 since patient started atorvastatin Assessment & Plan (08/08/2024 10:59 AM EDT): -Goal BP < 150/90 per JNC-8 and < 130/80 per ACC/AHA guideline (Treatment threshold >= 140/90 ) -BP not at goal today -Improve adherence to self-monitoring BP at home -Continue working on lifestyle modifications and stress reduction -Continue amlodipine 10 mg daily -Continue Lisinopril 40 mg daily -(Continue tamsulosin for BPH) - Start metoprolol succinate 25 mg daily 08/08/24 Treatment History: previously on chlorthalidone but was discontinued due to hyponatremia; Verapamil was switched to amlodipine in November 2023 since patient started atorvastatin -Follow up in 2-3 wks for BP check; if persistently elevated, will change verapamil to amlodipine 10 mg daily Assessment & Plan (01/20/2024 10:38 AM EDT): -Goal BP < 150/90 per JNC-8 and < 130/80 per ACC/AHA guideline (Treatment threshold >= 140/90 ) -BP not at goal today -Improve adherence to self-monitoring BP at home -Continue working on lifestyle modifications and stress reduction -Continue amlodipine 10 mg daily -Continue Lisinopril 40 mg daily -(Continue tamsulosin for BPH) Treatment History: previously on chlorthalidone but was discontinued due to hyponatremia; Verapamil was switched to amlodipine in November 2023 since patient started atorvastatin -Follow up in 2-3 wks for BP check; if persistently elevated, will change verapamil to amlodipine 10 mg daily Assessment & Plan (11/04/2023 3:51 PM EDT): Controlled. Continue lisinopril + amlodipine same dose, thiazide diuretic dc due to hypoNa. Check BMP today Counseled re low salt diet/increase moderate physical activity. Check home BP BIW and prn CP/COELHO/YOUNG Non smoking patient. Fu with PCP in 3-4m Assessment & Plan (10/08/2023 11:55 AM EDT): -Goal BP < 150/90 per JNC-8 and < 130/80 per ACC/AHA guideline (Treatment threshold >= 140/90 ) -BP not at goal today, possibly due to prednisone use -Improve adherence to self-monitoring BP at home -Continue working on lifestyle modifications and stress reduction -Continue Verapamil 300 mg daily (will consider changing to amlodipine in the future due to statin) -Continue chlorthalidone 25mg -Continue Lisinopril 40 mg daily -(Continue tamsulosin for BPH) -Follow up in 2-3 wks for BP check; if persistently elevated, will change verapamil to amlodipine 10 mg daily Assessment & Plan (04/16/2023 9:43 AM EST): -Goal BP < 150/90 per JNC-8 and < 130/80 per ACC/AHA guideline (Treatment threshold >= 140/90 ) -Improve adherence to self-monitoring BP at home -Continue working on lifestyle modifications -Continue Verapamil 300 mg daily (will consider changing to amlodipine in the future due to statin) -Continue chlorthalidone 25mg -Continue Lisinopril 40 mg daily -(Continue tamsulosin for BPH) Discussed about the importance of lifestyle modification (especially reducing alcohol and sodium intake) and medication adherence. Stress reduction. Follow up in 3 mo, sooner if any problem arises Encounters Date Type Department Care Team Description 01/10/2025 Telephone [facility] [address] [place] [address] Willard Walton MD Med Refill 01/09/2025 Refill [facility] [address], [place] [phone] Willard Walton MD 01/02/2025 Telephone [facility] [address], [place] [phone] Willard Walton MD Call Back Request 12/18/2024 Refill [facility]BILE [facility] [address], [place] [phone] Willard Walton MD 12/15/2024 Outside Procedure [facility] OPTOMETRY [address], [place] [phone] Bc, Marti, OD Presbyopia (Primary Dx) 12/13/2024 9:45 AM EDT Office Visit [facility] OPTOMETRY [address] [place] [address] Bc, Marti, OD Hyperopia of both eyes (Primary Dx) 12/13/2024 Telephone [facility] [address] [place] [address] Willard Walton MD november 12/11/2024 Telephone [facility] [address] [place] [address] Willard Walton MD from Last 3 Months Immunizations Immunization Administration Dates Next Due Hep A, Adult 08/08/2024,01/20/2024 Influenza injectable quadrivalent preservative f ree 06/20/2018 Pneumococcal Conjugate PCV 20 08/08/2024 Tdap 01/20/2024,07/20/2013 Zoster, live 07/20/2013 Social History Tobacco Use Types Packs/Day Years Used Date Smoking Tobacco: Never Passive Smoke Exposure: Never Tobacco Cessation:Counseling Given: Not Answered Alcohol Use Standard Drinks/Week Comments Never 0 [...] not to disclose 2021 10:15 AM EDT Last Filed Vital Signs Vital Sign Reading Time Taken Comments Blood Pressure 142/90 11/13/2024 11:24 AM EDT Pulse 93 11/13/2024 11:16 AM EDT Temperature 36.8 C (98.2 F) 11/13/2024 11:16 AM EDT Respiratory Rate 14 11/13/2024 11:16 AM EDT Oxygen Saturation 99% 11/13/2024 11:16 AM EDT Inhaled Oxygen Concentration - - Weight 101 kg (221 lb 9.6 oz) 11/13/2024 11:16 A M EDT Height 189 cm (6' 2.41 ) 08/08/2024 9:54 AM EDT Body Mass Index 28.14 08/08/2024 9:54 AM EDT Plan of Treatment Health Maintenance Due Date Last Done Comments CT Colonography 1962 FIT DNA/Cologuard 1962 FIT 1962 FOBT 1962 HIV Screening 1962 Sigmoidoscopy 1962 Alcohol/Substance Use Screening 1974 RSV Patients and Patients Aged 60 years or older (1 - Risk 50-74 years 1-dose series) 2012 Zoster Vaccines (2 of 3) 09/14/2013 07/20/2013 COVID-19 Vaccine ( - season) 2024 12/04/2020, 11/13/2020 Influenza Vaccine (#1) 2024 06/20/2018 Depression Monitoring 05/16/2025 11/13/2024, 025 Disability Screening 08/08/2025 08/08/2024 SDOH Screening 08/08/2025 08/08/2024 Diabetes: Hemoglobin A1C 08/30/2025 025, 04/27/2023, 11/09/2019 Tobacco Screening 11/19/2025 11/19/2024 Lipid Panel 08/30/2029 08/30/2024, 01/03, 04/27/2023, Additional history exists DTaP/Tdap/Td Vaccines (3 - Td or Tdap) 01/19/2034 01/20/2024, 07/20/2013 Colonoscopy 03/20/2034 03/20/2024, 03/05, 03/10/2024, Additional history exists Colorectal Cancer Screening 03/20/2034 Hepatitis A Vaccines Completed 08/08/2024, 01/20/20 24 Pneumococcal Vaccine: 50+ Years Completed 08/08/2024 Hepatitis C Screening Completed 08/30/2024, 025 HIB Vaccines Aged Out No longer eligi ble based on patient's age to complete this topic HPV Vaccines Aged Out No longer eligi ble based on patient's age to complete this topic Hepatitis B Vaccines Discontinued IPV Vaccines Aged Out No longer eligi ble based on patient's age to complete this topic Meningococcal B Vaccine Aged Out No l onger eligible based on patient's age to complete this topic Meningococcal Vaccine Aged Out No melyssa grace eligible based on patient's age to complete this topic RSV under 20 months Aged Out No longe r eligible based on patient's age to complete this topic Rotavirus Vaccines Aged Out No longer eligible based on patient's age to complete this topic Procedures Procedure Name Priority Date/Time Associated Diagnosis Comments HEPATITIS C AB W/REFL TO HCV RNA, QN, PCR Routine 08/30/2024 9:02 AM EDT Metabolic dysfunction-associa brian steatotic liver disease (MASLD) HEMOGLOBIN A1C Routine 08/30/2024 9:02 AM EDT Screening for diabetes mellitus LIPID PANEL WITH REFLEX TO DIRECT LDL Routine 08/30/2024 9:02 AM EDT Polyarthralgia HM COLONOSCOPY Routine 03/10/2024 from Last 3 Months or Most Recently Relevant to Health Maintenance Results * (ABNORMAL) Lipid Panel with Reflex to Direct LDL (08/30/2024 9:02 AM EDT) Triglycerides 232(H) <150 mg/dL [facility] Comment:Desirable Triglyceri de: less than 150 mg/dLBorderline High Triglyceride 150-199 mg/dLHigh Triglyceride: 200-499 mg/dLVery High Triglyceride: greater than or equal to 5OO mg/dL Cholesterol 166 <200 mg/dL [facility] Comment:Desirable Cholestero l: less than 200 mg/dLBorderline High Cholesterol: 200-239 mg/dLHigh Cholesterol: greater than 239 mg/dL LDL Cholesterol Calculated 85 <100 mg/dL [facility] Comment:Desirable LDL: less than 100 mg/dLNear Optimal/Above Optimal LDL: 110- 129 mg/dLBorderline High LDL: 130-159 mg/dLHigh LDL: 160-189 mg/dLVery High LDL: greater than or equal to 190 mg/dL HDL Cholesterol 35(L) >40 mg/dL [facility] Comment:Desirable HDL: great er than 40 mg/dL Note: This HDL assay may give artificially low results in patients with liver disease. Blood 08/30/2024 9:02 AM EDT 08/30/2024 9:02 AM EDT us Willard Walton MD LAB BLOOD ORDERABLES Final Resul t [facility] [address] [place] [phone] * (ABNORMAL) Hepatitis C Antibody with Reflex to HCV, RNA, Quantitative, Real- Time PCR (08/30/2024 9:02 AM EDT) Hepatitis C Antibody Reactive( A) Nonreactive [facility] Comment:Presumptive evidence of antibodies to HCV. Blood Venous blood specimen / Unknown 08/30/2024 9:02 AM EDT 08/30/2024 9:02 AM EDT Willard Walton MD LAB BLOOD ORDERABLES Final Resul t Performing Organization Address [facility] de Phone Number [facility] [address] [place] [phone] * Hemoglobin A1c (08/30/2024 9:02 AM EDT) Hemoglobin A1c 5.9 <6.0 % [facility] Comment:Hemoglobin A1C Refer ence Range Adults: 4.8 - 6.0 % Non diabetic: < 6.0 % Goal: < 7.0 %Additional Action Suggested: > 8.0 %Note: Hemoglobin A1c results are invalid for patients with abnormal amounts of HbF. Blood transfusions may impact the HbA1c concentration in the patient sample. Estimated Average Glucose 123 mg/dL [facility] Comment:eAG = Estimated ave rage glucose which is %A1C expressed asaverage glucose, using the formula of the Q0M-ZhhpjcvTpkiahu Glucose study (ADAG), Diabetes Care, Vol.31,#8,Nov. 2007 Blood Venous blood specimen / Unknown 08/30/2024 9:02 AM EDT 08/30/2024 9:02 AM EDT Willard Walton MD LAB BLOOD ORDERABLES Final Resul t Performing Organization Address [facility]/[employer] de Phone Number [facility] [address] [place] [phone] * Hm Colonoscopy (03/10/2024) Colonoscopy Normal Normal 03/10/2024 Cami Webster MD HEALTH MAINTENANCE Final Result from Last 3 Months or Most Recently Relevant to Health Maintenance Insurance [facility] STANDARD Care Teams Prune Washer Relationship Specialty Start Date End Date Willard Walton MD [address] [place] [phone] PCP - General Family Medicine 07/23/15
--- OUTSIDE RECORDS SUMMARY | 2025-02-23 15:31 | XMS_ITS | Encounter Summary ---
Author Organization [employer] Address [address] [facility] 7t [place] [address] Care Team Providers Care Asphalt Paving Machine Operator Name Role Phone Aisha Walton MD Primary Care Provider [phone] Encounter Details Date Type Department Care Team (Late st Contact Info) Description 12/15/2022 Orders Only [facility] [address] [place] [address] Olivia Phelps LPN Social History Tobacco Use Types Packs/Day Years [...] Diagnoses Not on filedocumented in this encounter Care Teams Asphalt Paving Machine Operator Relationship Specialty Start Date End Date Aisha Walton MD [address] [place] [phone] PCP - General Family Medicine 07/23/15 documented as of this encounter
--- OUTSIDE RECORDS SUMMARY | 2025-02-23 15:31 | XMS_ITS | Encounter Summary ---
Author Organization [employer] Address [address] [facility] [address] [place] [address] Care Team Providers Care Dust Sampler Name Role Phone Aisha Walton MD Primary Care Provider [phone] Reason for Visit * Reason Comments Med Refill Encounter Details Date Type Department Care Team ([facility] Contact Info) Description 08/11/2024 Refill [facility] MED[facility] [address] [place], [place] [phone] Aisha Walton MD [address] [place], [place] [phone] Social History Tobacco Use Types Packs/Day Years [...] Answer Date Recorded Patient Health Questionnaire-9 Score 24 08/08/2024 Patient Health Questionnaire-9 Score 24 08/08/2024 Last PHQ-9: Questionnaire Data Not on file 0 08/08/2024 Housing Stability Answer Date Recorded What is [...] Date Recorded Patient Health Questionnaire-2 Score 6 08/08/2024 Internet Access Answer Date Recorded Internet Access [...] Assessment Noted Time PHQ-9 Depression Total Score: 24 025 11:12 AM EDT documented as of this encounter Care Teams Dust Sampler Relationship Specialty Start Date End Date Aisha Walton MD [address] [place] [address] PCP - General Family Medicine 07/23/15 documented as of this encounter
--- OUTSIDE RECORDS SUMMARY | 2025-02-23 15:31 | XMS_ITS | Encounter Summary ---
Author Organization [employer] Address [address] [facility] 7t [place] [address] Care Team Providers Care Direct Marketing Representative Name Role Phone Aisha Walton MD Primary Care Provider [phone] Reason for Visit * Reason Comments Med Refill Encounter Details Date Type Department Care Team ([facility] st Contact Info) Description 01/02/2024 Refill [facility] MED[facility] [address] [place], [place] [phone] Aisha Walton MD [address] [place], [place] [phone] Social History Tobacco Use Types Packs/Day Years [...] documented as of this encounter Care Teams Direct Marketing Representative Relationship Specialty Start Date End Date Aisha Walton MD [address] [place] [phone] PCP - General Family Medicine 07/23/15 documented as of this encounter
== END 2025-02-23 15:25 | disposition home or self-care (01) ==
LOC: HO.NEURO 15:24
PROVIDERS: PCP Family Medicine; Visit Provider Family Medicine
DX: M79.672 Pain in left foot (principal); M79.671 Pain in right foot; M54.9 Dorsalgia, unspecified
CPT/HCPCS: 95886; 95909

== ENCOUNTER → 2025-02-23 15:28 | Outpatient (BNV) | payer MEDICAID, SELFPAY | PROVIDERS: PCP Family Medicine; Visit Provider Physical Medicine & Rehabilitation | DX: M54.16 Radiculopathy, lumbar region (principal) | CPT/HCPCS: 95886; 95909 ==

== ENCOUNTER → 2025-04-01 19:15 | Outpatient (BNV) | payer MEDICAID, SELFPAY | PROVIDERS: PCP Family Medicine; Visit Provider Radiology Diagnostic Radiology | DX: M48.062 Spinal stenosis, lumbar region with neurogenic claudication (principal) | CPT/HCPCS: 72148 ==

== ENCOUNTER 2025-04-01 19:16 | Outpatient (REF) | payer MEDICAID, SELFPAY ==
--- OUTSIDE RECORDS SUMMARY | 2024-03-20 04:30 | XMS_ITS ---
Author Organization [facility] Address [address] [place] [id number] Care Team Providers Care Tailor Fitter Name Role Phone Isabelle PALMA, Aisha Primary Care Provider Kristian Pereira [phone] REASON FOR VISIT screening Problems Problem Type SNOMED Code ICD Code Onset Dates Problem Status W/U Status Risk Notes Problem Diverticular disease of colon (277677504) Diverticulosis of large intestine without perforation or abscess without bleeding (K57.30) Active confirmed Encounters Encounter Location Date Provider Diagnosis [facility] Outpatient [address] [place] [phone] 03/20/2024 Kristian Chi Colon cancer scree daquan [...] Notes * MARK LANDRYBAMBIOB:1960 (64 yo M)Acc No.[id number]:03/20/2024 COLON WITH MAC Patient: TAL ACOSTA Provider: Gypsy Chi MD :1960 A ge:63 Y S ex:Male Date:03/20/2024 Address:[address] [place], [place] [id number] Pcp:Aisha Walton MD Subjective: * Chief Complaints: * S creening Assessment: * Assessment: 1. C olon cancer screening - Z12.11 (Primary) 2 . D iverticulosis of large intestine without perforation or abscess without bleeding - K57.30 3 . O ther hemorrhoids - K64.8 Plan: * Procedure Codes: 4 5378 DIAGNOSTIC COLONOSCOPY Billing Information: * Procedure Codes: 05194 DIAGNOSTIC COLONOSCOPY. * The named appointment provid er may or may not be the originator of this progress note, and it is not deemed complete until electronically signed by the appointment provider. Sign off status: Pending * Provider: Gypsy Chi MD Date: 1 05/21/2023 Generated for Greg pineda/Se/Dannieitting on: 06/02/2024 07:19 PM EST
--- OUTSIDE RECORDS SUMMARY | 2025-04-01 19:20 | XMS_ITS | Encounter Summary ---
Author Organization [employer] Address [address] [facility] 7t [place] [address] Care Team Providers Care Inventory Assistant Name Role Phone Aisha Walton MD Primary Care Provider [phone] Encounter Details Date Type Department Care Team (Late st Contact Info) Description 12/16/2022 Orders Only [facility] MED[facility] [address] [place], [place] [phone] Aisha Walton MD [address] [place], [place] [phone] Hypertension, unspecified type (Primary Dx); Dyslipidemia; Benign [...] present documented in this encounter Care Teams Inventory Assistant Relationship Specialty Start Date End Date Aisha Walton MD [address] [place] [address] PCP - General Family Medicine 07/23/15 documented as of this encounter
--- OUTSIDE RECORDS SUMMARY | 2025-04-01 19:20 | XMS_ITS | Patient Health Record ---
Author Organization [facility] Address [address] [place] [phone] Care Team Providers Care Account Manager Relief Name Role Phone Isabelle PALMA, Aisha Primary Care Provider Kristian Pereira [phone] Allergies No Known Allergies Reason For Referral No Information Medications Medication SIG (Take, Route, Frequency, Duration) Notes Start Date End Date Status Atorvastatin Calcium 10 MG Tablet TAKE 1 TABLET BY MOUTH EVERY DAY IN THE MORNING Oral; Duration: 90 Active Aspirin Low Dose 81 MG Tablet Delayed Release TAKE 1 TABLET BY MOUTH EVERY DAY Oral; Duration: 90 Not-Taking/KY N Cetirizine HCl 10 MG Tablet TAKE [...] Status Risk Notes Problem Colon cancer screening (873813124) Colon cancer screening (Z12.11) Active confirmed Problem Diverticular disease of colon (031041424) Diverticulosis of large intestine without perforation or abscess without bleeding (K57.30) Active confirmed Problem History of hepatitis C (85724899198415) History of hepatitis C (Z86.19) Active confirmed Problem Hepatic fibrosis (disorder) (54357213) Liver fibrosis (K74.00) Active confirmed Plan Of Treatment Pending Test Test Name [...] Start Date Coverage End Date MEDICAID OF [employer] [facility] [address] [place] [phone] [id number] TAL LANDRY Self - patient is the insured Medical (General) History Medical History History ICD Code Depression Hypertension Hepatitis C-s/p Rx in 2006- 8 weeks of Peg-IF and Ribavirin -- neg Hep C RNA in 05/2007 and 11/2008---liver bx in 2003 with Gr 2/4 and Stage I/IV--Genotype 1 Denies UT,DM,CVA,Lung disease, renal bridget kassidy Describes UGI bleed at [facility] in 02/2013-no EGD done, no transfusions, he was there for about 2 days--treated with Nexium for 1 month Negative colonoscopy 06/2013 EGD 06/2013 with small hiatal hernia, GERD, and Gastritis with H.pylori--no Aragon's, no esophagitis Surgical History Surgery Date(Month/Year)
--- OUTSIDE RECORDS SUMMARY | 2025-04-01 19:20 | XMS_ITS | Encounter Summary ---
Author Organization [employer] Address [address] [facility] 7t [place] [address] Care Team Providers Care Glass Pulverizer Equipment Operator Name Role Phone Aisha Walton MD Primary Care Provider [phone] Reason for Visit * Reason Onset Date Comments Med Refill 01/10/2025 Encounter Details Date Type Department Care Team ([facility] st Contact Info) Description 01/10/2025 Telephone [facility] MEDICINE [address] [place], [place] [phone] Aisha Walton MD [address] [place], [place] [phone] Med Refill Social History Tobacco Use Types [...] 10 MG tablet To be sent to: [facility]/pharmacy #[id number] - [place], [place] - [address] [place] [address] documented in this encounter Plan of Treatment Not on file documented as of this encounter Visit Diagnoses Not on filedocumented in this encounter Additional Health Concerns Assessment Noted Time PHQ-9 Depression Total Score: 20 025 10:50 AM EDT documented as of this encounter Care Teams Glass Pulverizer Equipment Operator Relationship Specialty Start Date End Date Aisha Walton MD [address] [place] [address] PCP - General Family Medicine 07/23/15 documented as of this encounter
--- OUTSIDE RECORDS SUMMARY | 2025-04-01 19:20 | XMS_ITS | Clinical Summary ---
Author Organization [employer] Address [address] [facility] 7t [place] [address] Care Team Providers Care Business Info Consultant Name Role Phone Willard Walton MD Primary Care Provider [phone] Allergies No known active allergies Medications * [...] Problem Noted Date Diagnosed Date Prostate cancer ([facility]) 08/13/2024 Assessment & Plan (08/13/2024 7:02 AM [...] FRANCES ultrasound in October 2023 -Seen by puff iron operator on 11/07/2024. Current diagnosis: Gout; neuritis; bilateral feet pain. - Continue medications, lidocaine topical and diclofenac gel as prescribed by puff iron operator - Evaluate neuritis with EMG/NCT Assessment & Plan (08/08/2024 11:01 AM EDT): - Unlikely to be Gout. Will evaluate with lab. - Will refer to puff iron operator - He had a normal FRANCES [...] AM EDT): - chronic - seen by [facility] Ortho and Dx olecranon bone spur. Rx diclofenac - since patient has not taken diclofenac PO and has GERD, will prescribe topical diclofenac. - activity modification - refer to orthopedist in [place] Assessment & Plan (04/16/2023 9:41 AM EST): - chronic - seen by [facility] Ortho and Dx olecranon bone spur. Rx diclofenac - since patient has not taken diclofenac PO and has GERD, will prescribe topical diclofenac. - activity modification - refer to orthopedist in [place] MELINDA (generalized anxiety disorder) 04/15/2023 Assessment & [...] [facility] as needed. Patient was referred to [facility], he's currently on waiting list. clinician provided [...] for OP individual therapy will be place. [facility] clinician will be available if needed [...] (08/13/2024 10:51 AM EDT): - Followed by [facility] - s/p TURP biopsy, which has been negative in the past - restarted tamsulosin 0.4 mg daily in Apr 2023 - MRI in December 2023. PI-RADS 5. Patient had TRUSP biopsy and was positive for adenocarcinoma of prostate. Assessment & Plan (01/25/2024 10:08 AM EDT): - Previously followed by [facility], last note in Dec 2023 - s/p TURP biopsy which was negative - restarted tamsulosin 0.4 mg daily in Apr 2023 - last PSA 7 in Apr 2023; [facility], but patient lost insurance and was [...] 11:53 AM EDT): - Previously followed by [facility], last note in Mar 2020 - s/p TURP biopsy which was negative - restarted tamsulosin 0.4 mg daily in Apr 2023 - last PSA 7 in Apr 2023; referred back to [facility] urolog, but patient lost insurance and was unable to schedule - refer back again Assessment & Plan (04/16/2023 9:45 AM EST): - Previously followed by [facility] Urology, last note in Mar 2020 - [...] 50 mg at bedtime - Seen by [facility] clinician today; will be referred to a S provider in [place] Assessment & Plan (11/19/2024 6:06 PM EDT): [...] for OP individual therapy will be place. [facility] clinician will be available if needed [...] be referred to a S provider in [place] Assessment & Plan (11/19/2024 6:06 PM EDT): [...] Health Integration Plan Internal Follow up with [facility] Patient Self Plan Patient to utilize skills provided in intervention , [facility], Comply with medication , Patient to engage in OP therapy , and Patient to reach out to CB as needed. Patient was referred to [facility], he's currently on waiting list. clinician provided [...] to possible side effects. - Seen by [facility] clinician today again; will be referred to a S provider in [place] Assessment & Plan (11/19/2024 6:10 PM EDT): [...] >>ASSESSMENT AND PLAN FOR RECURRENT MAJOR DEPRESSION ([facility]) WRITTEN ON 08/08/2024 9:20 AM BY EDINSON RASMUSSEN MA - Previously taking quetiapine 75mg at bedtime - Prescribed trazodone 50 mg at bedtime - PHQ9 score 15 in Apr 2023 - Currently on escitalopram 10 mg daily. Will monitor symptoms and hyponatremia. Consider changing to another medication due to possible side effects. - Seen by [facility] clinician today again; will be referred to a S provider in [place] Bilateral hydrocele 09/01/2012 Assessment & Plan (04/14/2023 [...] Encounters Date Type Department Care Team Description 03/05/2025 Telephone [facility] [address] [place] [phone] Kenia Jiang RN NCT/EMG Result 03/05/2025 Orders Only [facility] [address] [place] [address] Willard Walton MD Numbness and tingling of leg (Primary Dx); Bilateral foot pain; Chronic bilateral low back pain with bilateral sciatica; Lumbar radiculopathy, chronic 01/10/2025 Telephone [facility] [address] [place] [address] Willard Walton MD Med Refill 01/09/2025 Refill [facility] [address] [place] [address] Willard Walton MD 01/02/[address] [place] [address] Willard Walton MD Call Back Request from Last 3 Months Immunizations Immunization Administration [...] (2 of 3) 09/14/2013 07/20/2013 COVID-19 Vaccine (3 - season) 2024 12/04/2020, 11/13/2020 Influenza Vaccine [...] 9:02 AM EDT) Triglycerides 232(H) <150 mg/dL [facility] Comment:Desirable Triglyceri de: less than 150 mg/dLBorderline High Triglyceride 150-199 mg/dLHigh Triglyceride: 200-499 mg/dLVery High Triglyceride: greater than or equal to 5OO mg/dL Cholesterol 166 <200 mg/dL [facility] Comment:Desirable Cholestero l: less than 200 mg/dLBorderline High Cholesterol: 200-239 mg/dLHigh Cholesterol: greater than 239 mg/dL LDL Cholesterol Calculated 85 <100 mg/dL [facility] Comment:Desirable LDL: less than 100 mg/dLNear Optimal/Above Optimal LDL: 110- 129 mg/dLBorderline High LDL: 130-159 mg/dLHigh LDL: 160-189 mg/dLVery High LDL: greater than or equal to 190 mg/dL HDL Cholesterol 35(L) >40 mg/dL [facility] Comment:Desirable HDL: great er than 40 mg/dL Note: This HDL assay may give artificially low results in patients with liver disease. Blood 08/30/2024 9:02 AM EDT 08/30/2024 9:02 AM EDT Willard Walton MD LAB BLOOD ORDERABLES Final Resul t Performing Organization Address City/[facility]/ZIP Co de Phone Number [facility] [address] [place] [phone] * (ABNORMAL) Hepatitis C Antibody with Reflex to HCV, RNA, Quantitative, Real- Time PCR (08/30/2024 9:02 AM EDT) Hepatitis C Antibody Reactive( A) Nonreactive [facility] Comment:Presumptive evidence of antibodies to HCV. Blood Venous blood specimen / Unknown 08/30/2024 9:02 AM EDT 08/30/2024 9:02 AM EDT Willard Walton MD LAB BLOOD ORDERABLES Final Resul t Performing Organization Address City/[facility]/ZIP Co de Phone Number [facility] [address] [place] [address] [place] [phone] * Hemoglobin A1c (08/30/2024 9:02 AM EDT) Hemoglobin A1c 5.9 <6.0 % [facility] Comment:Hemoglobin A1C Refer ence Range Adults: 4.8 - 6.0 % Non diabetic: < 6.0 % Goal: < 7.0 %Additional Action Suggested: > 8.0 %Note: Hemoglobin A1c results are invalid for patients with abnormal amounts of HbF. Blood transfusions may impact the HbA1c concentration in the patient sample. Estimated Average Glucose 123 mg/dL [facility] Comment:eAG = Estimated ave rage glucose which is %A1C expressed asaverage glucose, using the formula of the N9X-PekkdatBmwvzeg Glucose study (ADAG), Diabetes Care, Vol.31,#8,Nov. 2007 Blood Venous blood specimen / Unknown 08/30/2024 9:02 AM EDT 08/30/2024 9:02 AM EDT Willard Walton MD LAB BLOOD ORDERABLES Final Resul t [facility] [address] [place] [phone] * Hm Colonoscopy (03/10/2024) Colonoscopy Normal Normal 03/10/2024 Historical Provider HEALTH MAINTENANCE Final Result from Last 3 Months or Most Recently Relevant to Health Maintenance [facility] STAND[employer] Care Teams Business Info Consultant Relationship Specialty Start Date End Date Willard Walton MD [address] [place] [phone] PCP - General Family Medicine 07/23/15
--- OUTSIDE RECORDS SUMMARY | 2025-04-01 19:20 | XMS_ITS | Encounter Summary ---
Author Organization [employer] Address [address] [facility] 7t [place] [address] Care Team Providers Care Collective Bargaining Specialist Name Role Phone Aisha Walton MD Primary Care Provider [phone] Encounter Details Date Type Department Care Team (Late st Contact Info) Description 10/06/2023 Orders Only [facility] MEDICINE [address] [place], [place] [phone] Aisha Walton MD [address] [place], [place] [phone] Social History Tobacco Use Types Packs/Day Years [...] documented as of this encounter Care Teams Collective Bargaining Specialist Relationship Specialty Start Date End Date Aisha Walton MD [address] [place] [address] PCP - General Family Medicine 07/23/15 documented as of this encounter
--- OUTSIDE RECORDS SUMMARY | 2025-04-01 19:20 | XMS_ITS | Encounter Summary ---
Author Organization [employer] Address [address] [facility] 7t [place] [address] Care Team Providers Care Marine Equipment Test Engineer Name Role Phone Aisha Walton MD Primary Care Provider [phone] Reason for Visit * Reason Comments Med Refill Encounter Details Date Type Department Care Team ([facility] st Contact Info) Description 01/02/2024 Refill [facility] MEDICINE [address] [place], [place] [phone] Aisha Walton MD [address] [place], [place] [phone] Social History Tobacco Use Types Packs/Day Years [...] documented as of this encounter Care Teams Marine Equipment Test Engineer Relationship Specialty Start Date End Date Aisha Walton MD [address] [place] [id number] PCP - General Family Medicine 07/23/15 documented as of this encounter
--- OUTSIDE RECORDS SUMMARY | 2025-04-01 19:20 | XMS_ITS | Encounter Summary ---
Author Organization [employer] Address [address] [facility] 7t [place] [address] Care Team Providers Care Fire Chief Name Role Phone Aisha Walton MD Primary Care Provider Encounter Details Date Type Department Care Team (Late st Contact Info) Description 12/15/2022 Orders Only [facility] MED & PEDS [address] [place] [address] Olivia Phelps LPN Social History Tobacco Use [...] on filedocumented in this encounter Care Teams Fire Chief Relationship Specialty Start Date End Date Aisha Walton MD [address] [place] [id number] PCP - General Family Medicine 07/23/15 documented as of this encounter
--- OUTSIDE RECORDS SUMMARY | 2025-04-01 19:20 | XMS_ITS | Encounter Summary ---
Author Organization [employer] Address [address] [facility] [address]t [place] [address] Care Team Providers Care Fisher Mussel Name Role Phone Aisha Walton MD Primary Care Provider Reason for Visit * Reason Onset Date Comments Hospital Follow-up 10/22/2023 Encounter Details Date Type Department Care Team (Late st Contact Info) Description 10/22/2023 Telephone [facility] MEDICINE [address] [place], [place] [phone] Aisha Walton MD [address] [place], [place] [phone] Hospital Follow-up Social History Tobacco Use Types [...] ED visit on : Date: 10/17/23-10/22/23 Hospital: [facility] Seen for: Hypertensive, Disoriented Diagnoses: Hyponatremic Patient advised will forward to team nurse for follow up documented in this encounter Plan of Treatment Not on file documented as of this encounter Visit Diagnoses Not on filedocumented in this encounter Additional Health Concerns Assessment Noted Time PHQ-9 Depression Total Score: 13 024 8:45 AM EDT documented as of this encounter Care Teams Fisher Mussel Relationship Specialty Start Date End Date Aisha Walton MD [address] [place] [address] PCP - General Family Medicine 07/23/15 documented as of this encounter
--- OUTSIDE RECORDS SUMMARY | 2025-04-01 19:20 | XMS_ITS | Encounter Summary ---
Author Organization [email or web address] Address [address] [facility] 7[address] [place] [address] Care Team Providers Care Senior Technical Editor Name Role Phone Aisha Walton MD Primary Care Provider [phone] Reason for Visit * Reason Comments Med Refill Encounter Details Date Type Department Care Team ([facility] Contact Info) Description 08/11/2024 Refill [facility] MEDICINE [address] [place], [place] [phone] Aisha Walton MD [address] [place], [place] [phone] Social History Tobacco Use Types Packs/Day Years [...] documented as of this encounter Care Teams Senior Technical Editor Relationship Specialty Start Date End Date Aisha Walton MD [address] [place] [address] PCP - General Family Medicine 07/23/15 documented as of this encounter
--- OUTSIDE RECORDS SUMMARY | 2025-04-01 19:20 | XMS_ITS | Clinical Summary ---
Author Organization [address] [facility] Address [address] [place] [address] Phone Care Team Providers Care Volunteer Specialist Name Role Phone Aisha Walton MD Primary Care Provider [phone] Allergies No known active allergies Medications alpha lipoic acid 600 mg tablet Take 1 tablet by mouth 1 (one) time each day. 30 tablet 2 5 03/21/20 25 lidocaine (LIDODERM) 5 % patch Apply 1 patch topically 1 (one) time each day. Remove & discard patch within 12 hours or as directed by . 30 each 2 5 03/21/20 25 Social History Tobacco Use Types Packs/Day Years [...] to complete this topic Insurance [place] Care Teams Volunteer Specialist Relationship Specialty Start Date End Date Aisha Walton MD [address] [place] [phone] PCP - General Family Medicine 08/17/24
== END 2025-04-01 19:17 | disposition home or self-care (01) ==
LOC: HO.MRI 19:16
PROVIDERS: PCP Family Medicine; Visit Provider Family Medicine
DX: G89.29 Other chronic pain (principal); M54.42 Lumbago with sciatica, left side; M54.41 Lumbago with sciatica, right side; M54.16 Radiculopathy, lumbar region; R20.0 Anesthesia of skin; R20.2 Paresthesia of skin; M79.671 Pain in right foot; M79.672 Pain in left foot
CPT/HCPCS: 72148